=== PATIENT | female | born 1955 | race Caucasian/White ===

== ENCOUNTER → 2018-05-20 | Outpatient (CLI) | payer OTHER ==
--- NOTE | 2018-05-20 17:19 | MR ---
EXAMINATION TYPE: MR brain wo/w con DATE OF EXAM: 05/20/2018 COMPARISON: CT brain 09/01/2016 HISTORY: Numbness TECHNIQUE: Multiplanar, multisequence images of the brain and brainstem is performed without and with IV contras t, utilizing 7.5 mL intravenous Gadavist . FINDINGS: Diffusion weighted images demonstrate no evidence of a recent infarct or other diffusion ab normality. There is no extra-axial fluid collection. Periventricular white matter shows hyperintensi ties on inversion recovery and T2-weighted sequences, approximately 10 lesions are present. Largest i n the left frontal lobe measures approximately 11 mm and may be confluent smaller hyperintensities. T he ventricular system and cisternal spaces are normal in size and appearance. The brain volume is ag e appropriate. Midline structures demonstrate normal morphology. The craniocervical junction appears within normal limits. Post contrast images demonstrate in the left frontal lobe, question whether this may be fariha factual however, no additional abnormal enhancement. The dural venous sinuses appear patent. The visu alized sinuses are clear and the globes are intact. IMPRESSION: Nonspecific white matter demyelination. Additional findings above.
== END | disposition home or self-care (01) ==
LOC: RADMRIMAIN 06:18
PROVIDERS: ATTEND Nurse Practitioner Family
DX: G93.9 Disorder of brain, unspecified (principal); R20.2 Paresthesia of skin
CPT/HCPCS: 70553; A9581

== ENCOUNTER 2018-08-31 08:29 | Emergency (ER) | payer OTHER ==
[2018-08-31 08:36] VITALS: TEMP 98.2
[2018-08-31] MEDS ORDERED: SODIUM CHLORIDE 0.9% 1,000 ML IV STA ×2 (08:58)
[2018-08-31] MEDS ORDERED: ONDANSETRON 4 MG/2 ML VIAL IVP STA (08:58)
--- NOTE | 2018-08-31 09:00 | ED ---
Abdominal Pain HPI - General Chief Complaint: Abdominal Pain Stated Complaint: poss UTI/headache/vomiting Time Seen by Provider: 08/31/18 08:39 Source: patient, RN notes reviewed Mode of arrival: ambulatory Limitations: no limitations - History of Present Illness Initial Comments: This is a 62-year-old female who presents with complaints of dysuria she is also had nausea vomiting for the past 2 days along with a headache. Also decreased oral intake. She was recently seen in her doctor's office and she suspected she had a UTI that the tests apparently were negative. She still having symptoms however no chest pain cough phlegm production. No lower overt fevers chills or sweats. She does have some nonspecific abdominal pain. MD Complaint: abdominal pain, other - Related Data Home Medications Medication Instructions Recorded Confirmed ALPRAZolam [Xanax] 0.25 mg PO HS 09/01/16 09/01/16 Amitriptyline HCl 20 mg PO HS 09/01/16 09/01/16 Aspirin [Adult Low Dose Aspirin EC] 324 mg PO DAILY 09/01/16 09/02/16 Baclofen [Lioresal] 10 mg PO BID 09/01/16 09/01/16 DULoxetine HCL [Cymbalta] 60 mg PO DAILY 09/01/16 09/01/16 Ergocalciferol [Vitamin D2 50,000 unit PO NIX 09/01/16 09/01/16 (DRISDOL)] Hydrocortisone/Pramoxine 1 applic TOPICAL QAM 09/01/16 09/01/16 [Pramosone 2.5% Cream] Levothyroxine Sodium [Synthroid] 75 mcg PO DAILY 09/01/16 09/01/16 Linaclotide [Linzess] 145 mcg PO DAILY 09/01/16 09/01/16 Meloxicam 15 mg PO HS 09/01/16 09/01/16 Triamterene-Hctz 37.5-25Mg 1 cap PO DAILY 09/01/16 09/01/16 [Dyazide 37.5-25 Capsule] amLODIPine [Norvasc] 5 mg PO DAILY 09/01/16 09/01/16 cycloSPORINE 0.05% OPHTH SOLN 1 applicator BOTH EYES Q12H 09/01/16 09/01/16 [Restasis] rOPINIRole HCL [Requip] 1 mg PO HS 09/01/16 09/01/16 Previous Rx's Medication Instructions Recorded HYDROcodone/APAP 5-325MG [Lyons 1 each PO Q4HR PRN #60 tab 09/03/16 5-325] Sulfamethox-Tmp 800-160Mg [Bactrim 1 each PO BID #14 tab 09/03/16 DS 800-160 mg] Cephalexin [Keflex] 500 mg PO Q6HR #40 cap 08/31/18 Phenazopyridine [Pyridium] 100 mg PO TID #15 tablet 08/31/18 Allergies Allergy/AdvReac Type Severity Reaction Status Date / Time morphine Allergy Anaphylaxis Verified 08/31/18 08:36 hydromorphone [From Dilaudid] AdvReac Nausea & Verified 08/31/18 08:36 Vomiting Review of Systems ROS Statement: Those systems with pertinent positive or pertinent negative responses have been documented in the HPI. ROS Other: All systems not noted in ROS Statement are negative. Past Medical History Past Medical History: Fibromyalgia, Hyperlipidemia, Osteoarthritis (OA), Thyroid Disorder Additional Past Medical History / Comment(s): nhan, History of Any Multi-Drug Resistant Organisms: None Reported Past Surgical History: Section, Hysterectomy, Joint Replacement, Orthopedic Surgery Additional Past Surgical History / Comment(s): toe surgery, Past Anesthesia/Blood Transfusion Reactions: Postoperative Nausea & Vomiting ( PONV) Past Psychological History: No Psychological Hx Reported Smoking Status: Never smoker Past Alcohol Use History: None Reported Past Drug Use History: None Reported - Past Family History Father Family Medical History: Congestive Heart Failure (CHF), Coronary Artery Disease (CAD), Myocardial Infarction ([place]) Additional Family Medical History / Comment(s): at age 58 from a heart attack Mother Family Medical History: Dementia Brother(s) Family Medical History: Coronary Artery Disease (CAD) Additional Family Medical History / Comment(s): down syndrome, parkinsons Sister(s) Family Medical History: No Reported History General Exam - General Exam Comments Initial Comments: This is a well-developed well-nourished awake alert oriented 3 female Limitations: no limitations General appearance: alert, in no apparent distress Head exam: Present: atraumatic, normocephalic, normal inspection Eye exam: Present: normal appearance, PERRL, EOMI. Absent: scleral icterus, conjunctival injection, periorbital swelling ENT exam: Present: mucous membranes dry Neck exam: Present: normal inspection. Absent: tenderness, meningismus, lymphadenopathy Respiratory exam: Present: normal lung sounds bilaterally. Absent: respiratory distress, wheezes, rales, rhonchi, stridor Cardiovascular Exam: Present: regular rate, normal rhythm, normal heart sounds. Absent: systolic murmur, diastolic murmur, rubs, gallop, clicks GI/Abdominal exam: Present: soft, tenderness (Mild tenderness palpation of the suprapubic region no guarding rebound masses or bruits), normal bowel sounds. Absent: distended, guarding, rebound, rigid Rectal exam: Present: deferred Extremities exam: Present: normal inspection, full ROM, normal capillary refill. Absent: tenderness, pedal edema, joint swelling, calf tenderness Back exam: Present: normal inspection Neurological exam: Present: alert, oriented X3, CN II-XII intact Psychiatric exam: Present: normal affect, normal mood Skin exam: Present: warm, dry, intact, normal color. Absent: rash Course Vital Signs 08/31/18 08:33 Temperature 98.2 F Pulse Rate 94 Respiratory 20 Rate Blood Pressure 144/83 O2 Sat by Pulse 99 Oximetry Medical Decision Making - Medical Decision Making Patient is feeling improved after the medication and IV fluid rendered. Patient does have evidence of UTI she'll be discharged on appropriate medication she is a follow-up with her doctor return when necessary - Lab Data Result diagrams: 08/31/18 09:13 08/31/18 09:13 Lab Results 08/31/18 08/31/18 08/31/18 Range/Units 08:45 09:13 09:13 WBC (3.8-10.6) k/uL RBC (3.80-5.40) m/uL Hgb (11.4-16.0) gm/dL Hct (34.0-46.0) % MCV (80.0-100.0) fL MCH (25.0-35.0) pg MCHC (31.0-37.0) g/dL RDW (11.5-15.5) % Plt Count (150-450) k/uL Neutrophils % % Lymphocytes % % Monocytes % % Eosinophils % % Basophils % % Neutrophils # (1.3-7.7) k/uL Lymphocytes # (1.0-4.8) k/uL Monocytes # (0-1.0) k/uL Eosinophils # (0-0.7) k/uL Basophils # (0-0.2) k/uL Sodium 138 (137-145) mmol/L Potassium 4.5 (3.5-5.1) mmol/L Chloride 102 (98-107) mmol/L Carbon Dioxide 24 (22-30) mmol/L Anion Gap 12 mmol/L BUN 15 (7-17) mg/dL Creatinine 0.86 (0.52-1.04) mg/dL Est GFR (CKD-EPI)AfAm 84 (>60 ml/min/1.73 sqM) Est GFR (CKD-EPI)NonAf 73 (>60 ml/min/1.73 sqM) Glucose 127 H (74-99) mg/dL Plasma Lactic Acid Real (0.7-2.0) mmol/L Calcium 9.6 (8.4-10.2) mg/dL Total Bilirubin 0.9 (0.2-1.3) mg/dL AST 42 H (14-36) U/L ALT 41 (9-52) U/L Alkaline Phosphatase 84 (38-126) U/L Total Creatine Kinase 201 H (30-135) U/L CK-MB (CK-2) 0.8 (0.0-2.4) ng/mL CK-MB (CK-2) Rel Index 0.4 Troponin I <0.012 (0.000-0.034) ng/mL Total Protein 7.9 (6.3-8.2) g/dL Albumin 4.4 (3.5-5.0) g/dL Amylase 57 (30-110) U/L Lipase 39 (23-300) U/L Urine Color Yellow Urine Appearance Cloudy H (Clear) Urine pH 6.5 (5.0-8.0) Ur Specific [place] 1.010 (1.001-1.035) Urine Protein Trace H (Negative) Urine Glucose (UA) Negative (Negative) Urine Ketones Negative (Negative) Urine Blood Small H (Negative) Urine Nitrite Positive H (Negative) Urine Bilirubin Negative (Negative) Urine Urobilinogen <2.0 (<2.0) mg/dL Ur Leukocyte Esterase Large H (Negative) Urine RBC 4 (0-5) /hpf Urine WBC 131 H (0-5) /hpf Urine WBC Clumps Occasional H (None) /hpf Ur Squamous Epith Cells 2 (0-4) /hpf Urine Bacteria Rare H (None) /hpf Urine Mucus Rare H (None) /hpf 08/31/18 08/31/18 Range/Units 09:13 09:13 WBC 12.9 H (3.8-10.6) k/uL RBC 5.12 (3.80-5.40) m/uL Hgb 15.5 (11.4-16.0) gm/dL Hct 47.7 H (34.0-46.0) % MCV 93.3 (80.0-100.0) fL MCH 30.3 (25.0-35.0) pg MCHC 32.5 (31.0-37.0) g/dL RDW 13.3 (11.5-15.5) % Plt Count 272 (150-450) k/uL Neutrophils % 84 % Lymphocytes % 9 % Monocytes % 5 % Eosinophils % 1 % Basophils % 1 % Neutrophils # 10.8 H (1.3-7.7) k/uL Lymphocytes # 1.1 (1.0-4.8) k/uL Monocytes # 0.7 (0-1.0) k/uL Eosinophils # 0.1 (0-0.7) k/uL Basophils # 0.1 (0-0.2) k/uL Sodium (137-145) mmol/L Potassium (3.5-5.1) mmol/L Chloride (98-107) mmol/L Carbon Dioxide (22-30) mmol/L Anion Gap mmol/L BUN (7-17) mg/dL Creatinine (0.52-1.04) mg/dL Est GFR (CKD-EPI)AfAm (>60 ml/min/1.73 sqM) Est GFR (CKD-EPI)NonAf (>60 ml/min/1.73 sqM) Glucose (74-99) mg/dL Plasma Lactic Acid Real 1.3 (0.7-2.0) mmol/L Calcium (8.4-10.2) mg/dL Total Bilirubin (0.2-1.3) mg/dL AST (14-36) U/L ALT (9-52) U/L Alkaline Phosphatase (38-126) U/L Total Creatine Kinase (30-135) U/L CK-MB (CK-2) (0.0-2.4) ng/mL CK-MB (CK-2) Rel Index Troponin I (0.000-0.034) ng/mL Total Protein (6.3-8.2) g/dL Albumin (3.5-5.0) g/dL Amylase (30-110) U/L Lipase (23-300) U/L Urine Color Urine Appearance (Clear) Urine pH (5.0-8.0) Ur Specific [place] (1.001-1.035) Urine Protein (Negative) Urine Glucose (UA) (Negative) Urine Ketones (Negative) Urine Blood (Negative) Urine Nitrite (Negative) Urine Bilirubin (Negative) Urine Urobilinogen (<2.0) mg/dL Ur Leukocyte Esterase (Negative) Urine RBC (0-5) /hpf Urine WBC (0-5) /hpf Urine WBC Clumps (None) /hpf Ur Squamous Epith Cells (0-4) /hpf Urine Bacteria (None) /hpf Urine Mucus (None) /hpf - Radiology Data Radiology results: report reviewed (Imaging shows no definite acute findings.), image reviewed Disposition Clinical Impression: Urinary tract infection, Dehydration, Cephalgia Disposition: HOME SELF-CARE Condition: Good Instructions: Urinary Tract Infection in Women (ED), Dysuria (ED), Dehydration (ED) Prescriptions: Cephalexin [Keflex] 500 mg PO Q6HR #40 cap Phenazopyridine [Pyridium] 100 mg PO TID #15 tablet Is patient prescribed a controlled substance at d/c from ED?: No Referrals: Tenzin Peguero MD [Primary Care Provider] - 1-2 days
[2018-08-31 09:36] LABS: Appearance,Urine Cloudy (Clear); Bacteria,Urine Rare /hpf; Bilirubin,Urine Negative (Negative); Blood,Urine Small (Negative); Color,Urine Yellow; Glucose,Urine (UA) Negative (Negative); Ketones,Urine Negative (Negative); Leukocyte Esterase,Urine Large (Negative); Mucus,Urine Rare /hpf; Nitrite,Urine Positive (Negative); PH, Urine 6.5 (5.0-8.0); Protein,Urine Trace (Negative); RBC,Urine 4 /hpf (0-5); Squamous Epithelial Cell,Urine 2 /hpf (0-4); Urobilinogen,Urine <2.0 mg/dL (<2.0)
--- NOTE | 2018-08-31 09:47 | XR ---
EXAMINATION TYPE: XR abdomen 2V , 4 VIEWS DATE OF EXAM ORDERED: 08/31/2018 HISTORY: abdominal pain. COMPARISON: None. FINDINGS: There has been a previous fusion at L3, L4 and L5. The lung bases are clear. The abdominal gas pattern is within normal limits. There is no evidence of obstruction or free air. N o unusual calcifications are seen. IMPRESSION: NO ACUTE INTRA-ABDOMINAL ABNORMALITY.
--- NOTE | 2018-08-31 09:47 | XR ---
EXAMINATION TYPE: XR chest 2V DATE OF EXAM: 08/31/2018 HISTORY: abdominal pain. REFERENCE: Previous study dated 09/01/2016. FINDINGS: The lungs are clear. Pleural space are clear. Heart size is upper limits of normal. IMPRESSION: NO ACUTE INTRATHORACIC ABNORMALITY.
[2018-08-31 09:57] LABS: Basophils # (A) 0.1 k/uL (0-0.2); Basophils % (A) 1 %; Eosinophils # (A) 0.1 k/uL (0-0.7); Eosinophils % (A) 1 %; HCT 47.7 % (34.0-46.0); HGB 15.5 gm/dL (11.4-16.0); Lymphocytes # (A) 1.1 k/uL (1.0-4.8); Lymphocytes % (A) 9 %; MCH 30.3 pg (25.0-35.0); MCHC 32.5 g/dL (31.0-37.0); MCV 93.3 fL (80.0-100.0); Mean Platelet Volume 7.1; Monocytes # (A) 0.7 k/uL (0-1.0); Monocytes % (A) 5 %; Neutrophils # (A) 10.8 k/uL (1.3-7.7); Neutrophils % (A) 84 %; Platelet Count 272 k/uL (150-450); RBC 5.12 m/uL (3.80-5.40); RDW 13.3 % (11.5-15.5); WBC 12.9 k/uL (3.8-10.6)
[2018-08-31 09:59] LABS: Albumin 4.4 g/dL (3.5-5.0); Calcium 9.6 mg/dL (8.4-10.2); Potassium 4.5 mmol/L (3.5-5.1); Total Bilirubin 0.9 mg/dL (0.2-1.3); Total Protein 7.9 g/dL (6.3-8.2)
[2018-08-31 10:05] LABS: Creatine Kinase 201 U/L (30-135)
[2018-08-31 10:19] LABS: Creatine Kinase MB 0.8 ng/mL (0.0-2.4); Troponin I <0.012 ng/mL (0.000-0.034)
[2018-08-31] MEDS ORDERED: KETOROLAC 30 MG/ML 1 ML VIAL IVP STA (10:38)
[2018-08-31 11:56] VITALS: BP 117/68; PULSE 86; RESP 18
== END 2018-08-31 11:54 | disposition home or self-care (01) ==
LOC: EC 08:29
DX: N39.0 Urinary tract infection, site not specified (principal); E86.0 Dehydration; R51 Headache; R11.2 Nausea with vomiting, unspecified; R10.9 Unspecified abdominal pain; M79.7 Fibromyalgia; E78.5 Hyperlipidemia, unspecified; M19.90 Unspecified osteoarthritis, unspecified site; E06.3 Autoimmune thyroiditis; Z79.1 Long term (current) use of non-steroidal anti-inflammatories (NSAID); Z79.899 Other long term (current) drug therapy; Z79.82 Long term (current) use of aspirin; Z88.5 Allergy status to narcotic agent
CPT/HCPCS: 36415; 80053; 82150; 82550; 82553; 83605; 83690; 84484; 85025; 81001; 87086; 71046; 74019; 99284; 96365; 96375 ×2; 96361 ×2; J2405; J0696; J1885; 87077; 87186

== ENCOUNTER → 2018-11-07 | Outpatient (CLI) | payer OTHER ==
[2018-11-07 09:49] LABS: Basophils # (A) 0.1 k/uL (0-0.2); Basophils % (A) 1 %; Eosinophils # (A) 0.2 k/uL (0-0.7); Eosinophils % (A) 3 %; HCT 42.1 % (34.0-46.0); HGB 14.7 gm/dL (11.4-16.0); Lymphocytes # (A) 2.1 k/uL (1.0-4.8); Lymphocytes % (A) 27 %; MCHC 34.8 g/dL (31.0-37.0); MCV 91.9 fL (80.0-100.0); Mean Platelet Volume 6.9; Monocytes # (A) 0.5 k/uL (0-1.0); Monocytes % (A) 7 %; Neutrophils # (A) 4.6 k/uL (1.3-7.7); Neutrophils % (A) 60 %; Platelet Count 263 k/uL (150-450); RBC 4.58 m/uL (3.80-5.40); RDW 12.6 % (11.5-15.5); WBC 7.7 k/uL (3.8-10.6)
[2018-11-07 19:28] LABS: Albumin 4.5 g/dL (3.80-4.90); Albumin/Globulin Ratio 1.96 (1.60-3.17); Anion Gap 8.1 mmol/L (4.00-12.00); Calcium 9.6 mg/dL (8.7-10.3); Carbon Dioxide 29.9 mmol/L (21.6-31.8); Globulin 2.3 g/dL (1.6-3.3); LDL Cholesterol,Calculated 71.4 mg/dL (0.0-131.0); Potassium 3.7 mmol/L (3.5-5.5); Total Bilirubin 0.4 mg/dL (0.3-1.2); Total Protein 6.8 g/dL (6.2-8.2); VLDL Calculation 34.6 mg/dL (5.00-40.00)
[2018-11-07 19:36] LABS: T4, Free (Free Thyroxine) 1.2 ng/dL (0.80-1.80)
[2018-11-07 22:55] LABS: Hemoglobin A1C 5.9 % (4.0-6.0)
== END | disposition home or self-care (01) ==
LOC: LABWHC1 08:52
PROVIDERS: ATTEND Internal Medicine Geriatric Medicine
DX: E78.5 Hyperlipidemia, unspecified (principal); E03.9 Hypothyroidism, unspecified; D64.9 Anemia, unspecified; E73.9 Lactose intolerance, unspecified
CPT/HCPCS: 36415; 80053; 80061; 83036; 84439; 84443; 85025

== ENCOUNTER → 2019-03-30 | Outpatient (CLI) | payer OTHER ==
--- NOTE | 2019-03-30 11:41 | CT ---
EXAMINATION TYPE: CT brain wo con DATE OF EXAM: 03/30/2019 COMPARISON: 09/01/2016 INDICATION: syncopeal episodes DLP: 843 mGycm, Automated exposure control for dose reduction was used. CONTRAST: None CT of the brain is performed utilizing 3 mm thick sections through the posterior fossa and 3 mm thick sections through the remaining calvarium. Study is performed within 24 hours of arrival to the hosp ital. No abnormal hyperdensity is present to suggest an acute intracranial hemorrhage. No mass lesion is evident. No acute infarcts are evident. Mild periventricular white matter hypodensity is present, likely on th e basis of chronic white matter ischemic changes Ventricles and sulci are mildly prominent for the patient age. Paranasal sinuses and mastoid air cells within the [id number] are clear. There is been some progression of the atrophy from 2016. IMPRESSIONS: 1. Mild atrophy with mild periventricular white matter ischemic type changes.
== END | disposition home or self-care (01) ==
LOC: RADCTMAIN 11:10
PROVIDERS: ATTEND Internal Medicine Geriatric Medicine
DX: I67.82 Cerebral ischemia (principal); G31.9 Degenerative disease of nervous system, unspecified
CPT/HCPCS: 70450

== ENCOUNTER → 2019-04-03 | Outpatient (CLI) | payer OTHER ==
--- NOTE | 2019-04-03 10:18 | P.STRESS ---
- Stress Test Note Stress Test Results/Findings: Exam Performed: stress echo exercise Exam Date: 04/03/19 Reason for Exam: SYNCOPE / CHEST PAIN Height: 5 ft 4 in Weight: 79.379 kg Protocol: CARLO Stage: 3 Duration of Exercise: 8:00 Resting Heart Rate: 92 Resting Blood Pressure: 107/74 Maximum Achieved Heart Rate: 136 Maximum Achieved Blood Pressure: 140/36 85% PMHR: 133 100% PMHR: 157 METS: 9.5 Technologist Comment: Stress Test Results/Findings: This is a 63-year-old female with history of hypertension, hypercholesterolemia and family history of ischemic heart disease being evaluated for symptoms of chest pain and shortness of breath. Stress data: Baseline EKG showed sinus rhythm with poor. CT interval and QRS duration. Blood pressure at rest his hand several 74 with pulse rate of 92. Patient walked on the Carlo protocol for about 8 minutes achieving a maximum rate of 136 with blood pressure 136/84. EKGs taken during and after the exercise did not reveal any significant changes from the baseline. Echo data: Baseline echo images showed normal wall motion and thickening. Exercise echo images showed augmentation of wall motion and thickening in all segments. There was a transient drop in blood pressure in the post exercise period, which improved within a minute or so to normal range. The importance of this is not clear and probably not critically important. Final impression: #1. Negative stress test #2. Negative stress echo.
--- NOTE | 2019-04-06 13:45 | ECHOS ---
Stress Test Results/Findings: Exam Performed: stress echo exercise Exam Date: 04/03/19 Reason for Exam: SYNCOPE / CHEST PAIN Height: 5 ft 4 in Weight: 79.379 kg Protocol: CARLO Stage: 3 Duration of Exercise: 8:00 Resting Heart Rate: 92 Resting Blood Pressure: 107/74 Maximum Achieved Heart Rate: 136 Maximum Achieved Blood Pressure: 140/36 85% PMHR: 133 100% PMHR: 157 METS: 9.5 Technologist Comment: Stress Test Results/Findings: This is a 63-year-old female with history of hypertension, hypercholesterolemia and family history of ischemic heart disease being evaluated for symptoms of chest pain and shortness of breath. Stress data: Baseline EKG showed sinus rhythm with poor. [place] interval and QRS duration. Blood pressure at rest his hand several 74 with pulse rate of 92. Patient walked on the Carlo protocol for about 8 minutes achieving a maximum rate of 136 with blood pressure 136/84. EKGs taken during and after the exercise did not reveal any significant changes from the baseline. Echo data: Baseline echo images showed normal wall motion and thickening. Exercise echo images showed augmentation of wall motion and thickening in all segments. There was a transient drop in blood pressure in the post exercise period, which improved within a minute or so to normal range. The importance of this is not clear and probably not critically important. Final impression: #1. Negative stress test #2. Negative stress echo. CHARMAINE
== END | disposition home or self-care (01) ==
LOC: RADNMMAIN 09:09
PROVIDERS: ATTEND Internal Medicine Geriatric Medicine
DX: R55 Syncope and collapse (principal)
CPT/HCPCS: 93351

== ENCOUNTER → 2019-05-15 | Outpatient (CLI) | payer OTHER | END | disposition home or self-care (01) | LOC: LABPAT 10:00 | PROVIDERS: ATTEND Internal Medicine Clinical Cardiac Electrophysiology | DX: Z01.812 Encounter for preprocedural laboratory examination (principal); R55 Syncope and collapse; E78.5 Hyperlipidemia, unspecified | CPT/HCPCS: 36415; 82533 ==

== ENCOUNTER → 2019-05-19 | Day surgery (SDC) | payer OTHER ==
[~2019-05-19] MED LIST: SODIUM CHLORIDE 0.9% 1,000 ML IV SCH
[2019-05-19 08:15] VITALS: BP 129/85; PULSE 80; RESP 18; TEMP 97.9
--- NOTE | 2019-05-19 15:59 | P.PCN ---
Preoperative Diagnosis: Procedure Tilt table test Twelve-lead ECG EKG and tilt table test data reviewed with Dr. Garcia Indication for the procedure: Syncope Twelve-lead ECG showed supraventricular rhythm with normal AL, narrow QRS, normal QT interval, normal ST segments, no delta or epsilon waves Baseline heart rate was 75 and blood pressure was 132/67 Patient was tilted upright at a 70 degree angle per protocol. Patient remained asymptomatic throughout procedure Heart rate and blood pressure remained stable, no significant changes At the end of the procedure the patient was laid supine Impression Normal heart rate and blood pressure response to upright tilting, no evidence for neurocardiogenic syncope Normal twelve-lead EKG, negative P waves in lead III
== END ==
LOC: CATHEP 07:47
PROVIDERS: ATTEND Internal Medicine Clinical Cardiac Electrophysiology
DX: R55 Syncope and collapse (principal); I10 Essential (primary) hypertension; E78.5 Hyperlipidemia, unspecified; G47.33 Obstructive sleep apnea (adult) (pediatric); Z99.89 Dependence on other enabling machines and devices; Z82.49 Family history of ischemic heart disease and other diseases of the circulatory system; Z88.5 Allergy status to narcotic agent; Z88.8 Allergy status to other drugs, medicaments and biological substances; Z79.1 Long term (current) use of non-steroidal anti-inflammatories (NSAID); Z79.82 Long term (current) use of aspirin; Z79.890 Hormone replacement therapy; Z79.899 Other long term (current) drug therapy
CPT/HCPCS: 93005; 93660

== ENCOUNTER → 2019-06-30 | Outpatient (CLI) | payer OTHER ==
--- NOTE | 2019-06-30 19:45 | CONS ---
CONSULTATION REASON FOR CONSULTATION: Sleep apnea. HISTORY OF PRESENT ILLNESS: This is a 63-year-old female patient, diagnosed having obstructive sleep apnea through [facility]. The patient has an older-generation ResMed CPAP unit which is an elite type 2 and this machine is set at a pressure of 9 cm of water. The treatment has been not as successful as it used to be in the past and the patient is coming in for further advice. She has multiple medical problems and comorbidities most significant of which is fibromyalgia. She goes to bed around 10 p.m., wakes up at 5:30 am in the morning. She snores. She quits breathing while off the treatment and she is reporting sleep fragmentation and excessive fatigue and tiredness and sleepiness during the day. Her current [place] score is 19. She also has restlessness in the lower extremities and she has leg cramping for which she is on a combination of Requip and Flexeril. No recent weight gain or weight loss. She has gained probably 5 pounds over the past 1 year. No history of substance abuse. No history of head trauma. It takes her sometimes more than 30 minutes to fall asleep yet for most of the time, she is able to initiate sleep without any major difficulties. She is requesting a re-evaluation regarding HOMERO treatment. PAST MEDICAL HISTORY: 1. HOMERO. 2. Hypothyroidism. 3. Vitamin D deficiency. 4. Osteoarthritis. 5. Anxiety. 6. Fibromyalgia. 7. Acid reflux. 8. Hypertension. 9. Environmental allergies. 10.IBS. PAST SURGICAL HISTORY: Includes right total knee replacement. Hysterectomy and right shoulder rotator cuff repair. ALLERGIES: DILAUDID. MEDICATION LIST: Includes levothyroxine 75 mcg p.o. daily, meloxicam 50 mg p.o. daily, vitamin D 500,000 biweekly, Xanax 0.25 mg p.r.n., Requip 0.5 mg twice a day, Flexeril 10 mg at bedtime, Cymbalta 60 mg p.o. daily, aspirin 81 mg p.o. daily, Protonix 40 mg p.o. daily, Linzess 145 mg p.o. daily, amlodipine 5 mg p.o. daily, Zyrtec 10 mg as needed, Abilify 10 mg p.o. daily, multivitamin 1 tablet a day. FAMILY HISTORY: Positive for obstructive sleep apnea in several family members including the brothers. REVIEW OF SYSTEMS: Fourteen-point review of systems was done. Positive findings are mentioned in history of present illness. The patient prefers to sleep on her back. She takes occasional naps during the day and these are short 20-30 minute naps. Her weight has been stable. Few pounds up since last year. She wakes up at least to 1-3 times in the middle of the night. Occasionally, she has to get out of the bed. No sleep paralysis. No hallucinations. No cataplexy. She has chronic fatigue, chronic body aches and sleep fragmentation. [place] Score is at 19. PHYSICAL EXAMINATION: BP is 143/79, pulse 94, respirations 16, temp 98.1. Saturation 96% on room air. Height is 5 feet 10 inches, weight is 185, BMI 32.7, [place] score is 19 and neck size 16-3/4 of an inch. Temperature 98.1. General appearance: Calm and comfortable. Head is atraumatic, normocephalic. NECK: Supple. Mallampati class IV. There is no goiter or neck masses. LUNGS: Clear to auscultation. HEART: Sounds are regular rate and rhythm. Normal S1, S2. No S3, S4. No murmurs. ABDOMEN: Soft, nontender. No organomegaly. EXTREMITIES: No edema. No cyanosis or clubbing. NEUROLOGIC: She is oriented x3. No focal neurological deficits. PSYCHIATRIC: Negative for anxiety for now. She has chronic anxiety in the past which is well treated. No active signs of depression. SKIN: Negative for any wounds or ulceration. IMPRESSION: 1. Obstructive sleep apnea. The patient is currently on a CPAP pressure of 9 cm of water. She is coming in for reevaluation stating that the treatment may by itself be suboptimal as the patient is experiencing increased fatigue and sleepiness. 2. Fibromyalgia. 3. Chronic restlessness in lower extremities and muscle spasms maintained on a combination of Requip and Flexeril. 4. Chronic anxiety. 5. History of osteoarthritis. 6. History of vitamin D deficiency. 7. Acid reflux. 8. Hypertension. 9. Environmental allergies. PLAN: The patient has excessive tiredness and sleepiness. [place] Score is at 19. Efficacy of the CPAP treatment is in question. We will reestablish a diagnosis by ordering a polysomnogram. I would like to see sleep architecture in view of her underlying fibromyalgia and I would like assess extent of sleep fragmentation and see to what extent sleep apnea has been a contributing factor. Would like to establish a new AHI. Accordingly, she may need a newer degeneration CPAP unit which may have some automatic features. She is already using a nose mask and this will be kept unchanged. Meanwhile, we will continue the Requip and Flexeril at bedtime. Encourage exercise. Encourage regulating sleep schedule and maintaining good sleep hygiene measures. I am going to continue to follow. MMODL / IJN: [id number] /
== END | disposition home or self-care (01) ==
LOC: SLEEP 15:05
PROVIDERS: ATTEND Internal Medicine Critical Care Medicine
DX: G47.33 Obstructive sleep apnea (adult) (pediatric) (principal); M79.7 Fibromyalgia; R53.83 Other fatigue; K21.9 Gastro-esophageal reflux disease without esophagitis; M62.838 Other muscle spasm; R45.1 Restlessness and agitation; F41.1 Generalized anxiety disorder; I10 Essential (primary) hypertension; Z87.39 Personal history of other diseases of the musculoskeletal system and connective tissue; Z86.39 Personal history of other endocrine, nutritional and metabolic disease; Z99.89 Dependence on other enabling machines and devices; Z88.5 Allergy status to narcotic agent; T78.40XA Allergy, unspecified, initial encounter; Z79.82 Long term (current) use of aspirin; Z79.899 Other long term (current) drug therapy
CPT/HCPCS: 99211

== ENCOUNTER → 2019-07-20 | Outpatient (CLI) | payer OTHER ==
[2019-07-20 08:51] LABS: Albumin 4.5 g/dL (3.5-5.0); Calcium 9.6 mg/dL (8.4-10.2); Potassium 4.3 mmol/L (3.5-5.1); Total Bilirubin 0.3 mg/dL (0.2-1.3); Total Protein 7.7 g/dL (6.3-8.2)
--- NOTE | 2019-07-20 09:34 | BD ---
EXAMINATION TYPE: Axial Bone Density DATE OF EXAM: 07/20/2019 COMPARISON: NONE CLINICAL HISTORY: Postmenopausal female Height: 5 FT 3 IN Weight: 181 FRAX RISK QUESTIONS: RISK FACTORS HISTORY OF: Surgery to Spine/Hip(right/left)/Wrist (right/left): SPINAL FUSION When: APPROX 2011 Postmenopausal woman: TOTAL HYST AGE 50 Take estrogen and/or progesterone medications: AFTER HYST ONE YEAR NO LONGER TAKES MEDICATIONS: Thyroid Medications: YES Which medication: SYNTHROID How Long: APPROX 2 YEARS Additional Medications: SYNTHROID, VIT D, MELOXICAM, PRAMOSONE, ROPINIROLE, FLEXERIL, XIIDRA, DULOXET INE, ASPIRIN, PANTROPRAZOLE, LINZESS, AMLODIPINE, ZYRTEC, ARIPIPRAZOLE Additional History: EXAM MEASUREMENTS: Bone mineral density about the R hip (g/cm2): 0.984 Bone mineral density about the L hip (g/cm2): 0.931 T Score values are as follows: -----R Neck: -0.4 -----L Neck: -0.8 -----R Total: -0.2 -----L Total: -0.1 BASELINE Bone mineral density about the L Wrist (g/cm2): 0.593 T Score values are as follows: -----Dist. R+U: -0.5 -----Prox. R+U: -1.4 -----Radius total: -1.4 BASELINE IMPRESSION: Osteopenia (T Score between -2.5 and -1). There is slightly increased risk of fracture and the patient may be considered for treatment. Re-Screen 2-5 years. NOTE: T-SCORE=SD OF THE YOUNG ADULT MEAN.
[2019-07-20 19:26] LABS: Hemoglobin A1C 5.7 % (4.0-6.0)
--- NOTE | 2019-07-21 10:55 | MM ---
Reason for exam: screening (asymptomatic). Last mammogram was performed 2 years and 5 months ago. History: Patient is postmenopausal. Benign excisional biopsy of the right breast, 1999. Physical Findings: A clinical breast exam by your physician is recommended on an annual basis and results should be correlated with mammographic findings. MG 3D Screening Mammo W/Cad Bilateral CC and MLO view(s) were taken. Prior study comparison: March 04, 2017, mammogram, performed at [facility]. September 07, 2016, mammogram, performed at [facility]. The breast tissue is heterogeneously dense. This may lower the sensitivity of mammography. Benign appearing bilateral calcifications. No suspicious abnormality. Right biopsy marker noted. No significant changes when compared with prior studies. ASSESSMENT: Benign, BI-RAD 2 RECOMMENDATION: Routine screening mammogram of both breasts in 1 year.
== END | disposition home or self-care (01) ==
LOC: RADMAMWWP 07:07
PROVIDERS: ATTEND Internal Medicine Geriatric Medicine
DX: Z12.31 Encounter for screening mammogram for malignant neoplasm of breast (principal); M85.80 Other specified disorders of bone density and structure, unspecified site; Z00.00 Encounter for general adult medical examination without abnormal findings; E78.5 Hyperlipidemia, unspecified; E03.9 Hypothyroidism, unspecified; R73.9 Hyperglycemia, unspecified
CPT/HCPCS: 36415; 77063; 77067; 77080; 80053; 80061; 83036; 84443

== ENCOUNTER → 2020-02-01 | Outpatient (CLI) | payer MEDICAID ==
--- NOTE | 2020-02-01 17:28 | CT ---
EXAMINATION TYPE: CT soft tissue neck w con DATE OF EXAM: 02/01/2020 HISTORY: Benign neoplasm of floor of mouth, diagnosed with oral cancer 6 weeks ago after pain and mike wth in mouth per patient. COMPARISON: NONE CT DLP: 511 mGycm. Automated Exposure Control for Dose Reduction was Utilized. TECHNIQUE: CT scan of the neck is performed with IV Contrast, patient injected with 100 ml mL of Iso silvia 300, axial images are obtained, coronal and sagittal reformatted images are reviewed. FINDINGS: Airway: Patent nasopharyngeal and oropharyngeal airway. Slightly suboptimal evaluation and oropharynx due to streak artifact from cavitary fillings and crowns. Region of epiglottis and vallecula preserv ed sagittal image 56 for reference. Some asymmetric fullness of the posterior right oral pharyngeal s oft tissue superior to this in the region of axial image 25 for reference.. Medial course to the righ t internal carotid artery noted just superior to this axial image 21. Mild apical scarring is thought present bilaterally. The piriform sinuses symmetric and thought within normal limits. Parotid/submandibular glands: No gross abnormality seen. Carotid/Vascular Structures: Incidental dominant left vertebral artery. Vertebral arteries are patent to basilar junction. Mild to moderate peripheral plaque right greater than left carotid bulbs withou t hemodynamically significant stenosis seen in either internal carotid artery. Incidental significant stenosis at origin of right external carotid artery is thought present. Osseous Structures: Straightening of cervical spine with moderate spurring and disc space narrowing C 5-C6 and C6-C7 levels, posterior spur disc complexes efface the anterior thecal sac at these levels g reatest left paracentral aspect on axial image 44 and 48 respectively. S-shaped scoliotic curvature o n coronal images. Other: Scattered prominent but family subcentimeter lymph nodes throughout the neck bilaterally. Sing le enlarged right sided lymph node at level of hyoid bone measuring 1.4 x 1.1 cm axial image 35. Visualized paranasal sinuses are clear. Nasal septum deviated to right of midline. IMPRESSION: Poor visualization of primary neoplasm believed at level of oropharynx eccentric to right of midline. Prominent but subcentimeter bilateral neck lymph nodes with single enlarged right-sided neck lymph node at level of hyoid bone noted. Correlate clinically and with PET/CT follow-up advised.
== END | disposition home or self-care (01) ==
LOC: RADCTMAIN 15:59
PROVIDERS: ATTEND Otolaryngology
DX: R22.1 Localized swelling, mass and lump, neck (principal)
CPT/HCPCS: 70491; Q9967

== ENCOUNTER → 2020-02-12 | Outpatient (CLI) | payer MEDICAID | END | disposition home or self-care (01) | LOC: LABWHC1 12:15 | PROVIDERS: ATTEND Surgery | DX: Z01.812 Encounter for preprocedural laboratory examination (principal) | CPT/HCPCS: 87635 ==

== ENCOUNTER → 2020-04-28 | Outpatient (CLI) | payer MEDICAID | END | disposition home or self-care (01) | LOC: LABPAT 08:03 | PROVIDERS: ATTEND Otolaryngology | DX: Z11.59 Encounter for screening for other viral diseases (principal) | CPT/HCPCS: U0003; C9803 ==

== ENCOUNTER → 2020-06-21 | Outpatient (CLI) | payer MEDICAID ==
--- NOTE | 2020-06-21 16:43 | CT ---
EXAMINATION TYPE: CT abdomen pelvis w con DATE OF EXAM: 06/21/2020 COMPARISON: 09/01/2016 HISTORY: LLQ pain, blood in stool CT DLP: 823.7 mGycm Automated exposure control for dose reduction was used. CONTRAST: Performed with IV Contrast, patient injected with 100 mL of Isovue 300. Images were obtained from the diaphragm to the floor the pelvis with oral and intravenous contrast. Lung bases are clear of consolidation. There is minimal subsegmental atelectasis. There is no pleural effusion. There is hiatal hernia. Heart size is normal. Liver and spleen appear intact. Bile ducts are not dilated. Stomach is intact. Gallbladder appears no rmal. There is no evidence of pancreatic mass. There is no adrenal mass. Kidneys show satisfactory contrast opacification. There is no hydronephrosi s. Ureters are not dilated. Delayed images show normal renal excretion. The bladder distends smoothly . There is no inguinal hernia. There is hysterectomy. There is small amount of free fluid in the pelvis. There is a long segment of wall thickening involvi ng the sigmoid colon. There are sigmoid diverticula. There is no evidence of an abscess. There is no evidence of thickened appendix. There is no sign of free air. There is no ascites. There is no eviden ce of bowel obstruction. There is posterior fusion surgery in the lumbar spine with rods and screws at L3 and L4 and L5. The b [place] pelvis is intact. There is compression fracture of T12 with 25% loss of height. IMPRESSION: Long segment of inflammatory changes of the sigmoid colon. This is more likely related to inflammator y bowel disease or nonspecific colitis because of the long segment of involvement. Diverticulitis not entirely excluded. This is a change compared to old exam. There is compression fracture of T12 which is a change compared to old exam. Age of this fracture is not clear.
== END | disposition home or self-care (01) ==
LOC: RADCTMAIN 14:37
PROVIDERS: ATTEND Nurse Practitioner Gerontology
DX: K57.92 Diverticulitis of intestine, part unspecified, without perforation or abscess without bleeding (principal)
CPT/HCPCS: 74177; Q9967

== ENCOUNTER 2020-08-05 11:54 | Day surgery (SDC) | payer MEDICAID ==
[~2020-08-05 11:54] MED LIST changes: +LACTATED RINGERS 1,000 ML IV SCH; +LIDOCAINE 1% (10MG/ML) FOR IV START INTRADERMA PRN; -SODIUM CHLORIDE 0.9% 1,000 ML IV SCH
[2020-08-05 12:14] VITALS: TEMP 97.8
[2020-08-05] MEDS ORDERED: LACTATED RINGERS 1,000 ML IV ONE (12:14)
[2020-08-05] MEDS ORDERED: LIDOCAINE 1% (10MG/ML) FOR IV START INTRADERMA ONE (12:18)
[2020-08-05] MEDS ORDERED: PROPOFOL 10 MG/ML 20 ML VIAL IV ONE (13:27)
--- NOTE | 2020-08-05 13:47 | P.PCN ---
Date of Procedure: 08/05/20 Procedure(s) Performed: BRIEF HISTORY: Patient is a 64-year-old pleasant female scheduled for an elective colonoscopy as a part of evaluation of change in bowel habits and rectal bleeding and recent episode of acute infectious colitis. PROCEDURE PERFORMED: Colonoscopy with snare polypectomy. PREOPERATIVE DIAGNOSIS: Change in bowel habits/rectal bleeding. IV sedation per Anesthesia. PROCEDURE: After informed consent was obtained, the patient, was brought into the endoscopy unit. IV sedation was administered by Anesthesia under continuous monitoring. Digital rectal examination was normal. Initially the Olympus CF-160 flexible video colonoscope was then inserted in the rectum, gradually advanced into the cecum without any difficulty. Careful examination was performed as the scope was gradually being withdrawn. Ileocecal valve and the appendiceal orifice were visualized and appeared normal. Prep was excellent. Mucosa of the cecum, ascending colon, appeared normal. The transverse colon there was a 5 mm sessile polyp removed by snare polypectomy. Rest of the transverse colon, descending colon, sigmoid colon, and rectum appeared normal. Scattered left-sided diverticulosis seen. Retroflexion was performed in the rectum and grade 2 internal hemorrhoids were seen. The patient tolerated the procedure well. Impression: No evidence of colitis 5 mm sessile transverse colon polyp status post polypectomy Scattered sigmoid diverticulosis Small internal hemorrhoids. RECOMMENDATIONS: Findings of this examination were discussed with the patient as well as her family. She was advised to follow with the biopsy results and if the biopsy shows an adenoma she can have a repeat colonoscopy in 5 years.
[2020-08-05 13:50] VITALS: RESP 16
[2020-08-05 14:27] VITALS: BP 112/72; PULSE 85
== END 2020-08-05 14:54 | disposition home or self-care (01) ==
LOC: ORWHC2ENDO 11:54
PROVIDERS: ATTEND Internal Medicine Gastroenterology
DX: K63.5 Polyp of colon (principal); K57.30 Diverticulosis of large intestine without perforation or abscess without bleeding; K64.1 Second degree hemorrhoids; K51.90 Ulcerative colitis, unspecified, without complications; E07.9 Disorder of thyroid, unspecified; F41.9 Anxiety disorder, unspecified; F32.9 Major depressive disorder, single episode, unspecified; K21.9 Gastro-esophageal reflux disease without esophagitis; Z86.19 Personal history of other infectious and parasitic diseases; Z79.899 Other long term (current) drug therapy; Z79.890 Hormone replacement therapy; Z79.1 Long term (current) use of non-steroidal anti-inflammatories (NSAID); Z96.651 Presence of right artificial knee joint; Z90.710 Acquired absence of both cervix and uterus; Z98.890 Other specified postprocedural states; Z88.5 Allergy status to narcotic agent
CPT/HCPCS: 45385; 88305; J2704

== ENCOUNTER → 2020-11-03 | Outpatient (CLI) | payer MEDICARE ==
--- NOTE | 2020-11-08 11:30 | MM ---
Reason for exam: screening (asymptomatic). Last mammogram was performed 1 year and 3 months ago. History: Patient is postmenopausal and history of other cancer. Benign excisional biopsy of the right breast, 1999. Physical Findings: A clinical breast exam by your physician is recommended on an annual basis and results should be correlated with mammographic findings. MG 3D Screening Mammo W/Cad Bilateral CC and MLO view(s) were taken. XCCL view(s) were taken of the left breast. Prior study comparison: July 20, 2019, bilateral MG 3d screening mammo w/cad. March 04, 2017, mammogram, performed at [facility]. The breast tissue is heterogeneously dense. This may lower the sensitivity of mammography. Previous mammotome biopsy in the right breast. No significant changes when compared with prior studies. ASSESSMENT: Benign, BI-RAD 2 RECOMMENDATION: Routine screening mammogram of both breasts in 1 year.
== END | disposition home or self-care (01) ==
LOC: RADMAMWWP 11:33
PROVIDERS: ATTEND Internal Medicine Geriatric Medicine
DX: Z12.31 Encounter for screening mammogram for malignant neoplasm of breast (principal)
CPT/HCPCS: 77063; 77067

== ENCOUNTER → 2022-03-02 | Outpatient (CLI) | payer MEDICARE | END | disposition home or self-care (01) | LOC: LABWHC1 08:57 | PROVIDERS: ATTEND Physician Assistant Medical | DX: Z96.649 Presence of unspecified artificial hip joint (principal) | CPT/HCPCS: 36415; 85652; 86140 ==

== ENCOUNTER → 2022-05-24 | Outpatient (CLI) | payer MEDICARE ==
--- NOTE | 2022-05-24 10:10 | US ---
EXAMINATION TYPE: US abdomen complete DATE OF EXAM: 05/24/2022 COMPARISON: CT abdomen and pelvis June 21, 2020 CLINICAL HISTORY: R10.13 EPIGASTRIC PAIN.pain TECHNIQUE: Multiple sonographic images of the abdomen are obtained.Limited due to body habitus. FINDINGS: EXAM MEASUREMENTS: Liver Length: 15.1 cm Gallbladder Wall: .1 cm CBD: .3 cm Spleen: 8.3 cm Right Kidney: 9 x 4.7 x 3.3 cm Left Kidney: 10.4 x 4.8 x 4.0 cm [employer] TECHNICIAN NOTES: Pancreas: Tail obscured by overlying bowel gas Liver: Increased attenuation focal sparring near gallbladder 1.7 x 1.5 x 1.7 cm. Gallbladder: No stones seen Evidence for sonographic Mayer's sign: No CBD: wnl Spleen: Limited Right Kidney: No hydronephrosis or masses seen Left Kidney: No hydronephrosis or masses seen Upper IVC: wnl Abd Aorta: wnl The visualized liver is heterogeneously hyperechoic consistent with known diffuse fatty infiltration. No surrounding ascites. The intrahepatic portion of the IVC and visualized abdominal aorta are withi n normal limits. There is no evidence of cholelithiasis. Common bile duct is unremarkable. The vis ualized portions of the pancreas are homogenous. The spleen is unremarkable. Kidneys are symmetric and free of hydronephrosis. No renal lesions are seen. IMPRESSION: Slightly suboptimal study. No new or acute findings are evident.
== END | disposition home or self-care (01) ==
LOC: RADUSWWP 09:14
PROVIDERS: ATTEND Internal Medicine Gastroenterology
DX: R10.13 Epigastric pain (principal)
CPT/HCPCS: 76700

== ENCOUNTER 2023-02-01 15:41 | Inpatient (IN) | payer MEDICARE ==
[2023-02-01 16:49] LABS: Basophils # (A) 0.1 k/uL (0-0.2); Basophils % (A) 1 %; Eosinophils # (A) 0.1 k/uL (0-0.7); Eosinophils % (A) 1 %; HCT 42.1 % (34.0-46.0); HGB 13.9 gm/dL (11.4-16.0); Lymphocytes # (A) 1.7 k/uL (1.0-4.8); Lymphocytes % (A) 18 %; MCH 29.9 pg (25.0-35.0); MCHC 32.9 g/dL (31.0-37.0); MCV 90.9 fL (80.0-100.0); Mean Platelet Volume 7.4; Monocytes # (A) 0.5 k/uL (0-1.0); Monocytes % (A) 5 %; Neutrophils # (A) 6.8 k/uL (1.3-7.7); Neutrophils % (A) 72 %; Platelet Count 368 k/uL (150-450); RBC 4.63 m/uL (3.80-5.40); RDW 14.2 % (11.5-15.5); WBC 9.4 k/uL (3.8-10.6)
[2023-02-01 17:00] LABS: ALT 36 U/L (4-34); African American GFR (CKD) >90 (>60 ml/min/1.73 sqM); Albumin 4.3 g/dL (3.5-5.0); Anion Gap 12 mmol/L; Blood Urea Nitrogen 18 mg/dL (7-17); Calcium 9.1 mg/dL (8.4-10.2); Carbon Dioxide 24 mmol/L (22-30); Chloride 102 mmol/L (98-107); Creatine Kinase 327 U/L (30-135); Glucose 94 mg/dL (74-99); Non-African American GFR(CKD) >90 (>60 ml/min/1.73 sqM); Sodium 138 mmol/L (137-145); Total Bilirubin 0.6 mg/dL (0.2-1.3); Total Protein 7.4 g/dL (6.3-8.2)
[2023-02-01 17:02] LABS: AST 44 U/L (14-36); Alkaline Phosphatase 60 U/L (38-126); Potassium 4.5 mmol/L (3.5-5.1)
[2023-02-01 17:06] LABS: Prothrombin Time 10.2 sec (9.0-12.0)
[2023-02-01 17:11] LABS: Partial Thromboplastin Time 21.3 sec (22.0-30.0)
--- NOTE | 2023-02-01 17:13 | CT ---
EXAMINATION TYPE: CT brain wo con CT DLP: 1173.6 mGycm, Automated exposure control for dose reduction was used. DATE OF EXAM: 02/01/2023 5:00 PM COMPARISON: 03/30/2019.. CLINICAL INDICATION:Female, 67 years old with history of Neuro deficit, acute, stroke suspected, neur o deficit TECHNIQUE: Brain: Axial CT images of the brain were obtained with coronal and sagittal reformats created and rev iewed. Contrast used: None. Oral contrast used: None. FINDINGS: Brain: Extra-axial spaces: No abnormal extra-axial fluid collections. Ventricular system: Within normal limits Cerebral parenchyma: No acute intraparenchymal hemorrhage or mass effect. The flores-white junction is well differentiated. Cerebellum: Unremarkable. Mass effect: No evidence of midline shift. Intracranial vasculature: Atherosclerotic calcifications of the intracranial vessels. Soft tissues: Normal. Calvarium/osseous structures: No depressed skull fracture. 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 Paranasal sinuses and mastoid air cells: Mild scattered paranasal sinus disease. Visualized orbits: Bilateral aphakia IMPRESSION: No acute intracranial process.
--- NOTE | 2023-02-01 17:38 | XR ---
EXAMINATION TYPE: XR chest 2V DATE OF EXAM: 02/01/2023 5:31 PM COMPARISON: Chest radiographs from 08/31/2018 TECHNIQUE: XR chest 2V Frontal and lateral views of the chest. CLINICAL INDICATION:Female, 67 years old with history of altered mental status; FINDINGS: Lungs/Pleura: There is no evidence of pleural effusion, focal consolidation, or pneumothorax. Pulmonary vascularity: Unremarkable. Heart/mediastinum: Cardiomediastinal silhouette is unremarkable. Musculoskeletal: No acute osseous pathology. IMPRESSION: No acute cardiopulmonary disease/process.
--- NOTE | 2023-02-01 17:50 | CT ---
EXAMINATION TYPE: CT angio head neck CT DLP: 476 mGycm, Automated exposure control for dose reduction was used. DATE OF EXAM: 02/01/2023 5:38 PM COMPARISON: None. CLINICAL INDICATION:Female, 67 years old with history of Neuro deficit, acute, stroke suspected; PHH, neuro deficit TECHNIQUE: Axially acquired helical CT angiogram of the head and neck was obtained with contrast. Axi al images are supplemented with 3D reconstructions [facility] NASCET criteria used. Contrast used:65ml mL of Isovue 370 with IV Contrast, Oral contrast used: None. FINDINGS: CTA HEAD: No evidence of acute intracranial hemorrhage, mass effect, or midline shift. The ventricles, sulci, a nd cisterns are unremarkable. The visualized portions of the internal carotid arteries, middle cerebral arteries, anterior cerebral arteries, and posterior cerebral arteries are patent. Atherosclerosis of the intracranial vasculatur e. Mild fusiform dilation of the intracranial portion of the left vertebral artery up to 4 mm. The basilar and vertebral arteries are patent. CTA NECK: Right Carotid System: The common carotid artery and external carotid artery are patent. The carotid bifurcation demonstrate s no evidence of hemodynamically significant stenosis. The remaining portions of the internal carotid artery demonstrate normal size without significant narrowing. Left Carotid System: The common carotid artery and external carotid artery are patent. The carotid bifurcation demonstrate s no evidence of hemodynamically significant stenosis. The remaining portions of the internal carotid artery demonstrate normal size without significant narrowing. Vertebral arteries are patent without evidence hemodynamically significant stenosis. There is a three-vessel aortic arch. The origins of the great vessels are patent. No evidence of hemo dynamically significant stenosis. Upper thorax: IMPRESSION: 1. No evidence of dissection of the cervical internal carotid arteries or vertebral arteries or any e vidence of significant stenosis at the carotid bifurcations. 2. No evidence of intracranial high-grade stenosis. 3. Mild fusiform dilation of the intracranial portion of the left vertebral artery up to 4 mm.
--- NOTE | 2023-02-01 18:24 | ED ---
Neuro HPI - General Chief Complaint: Neuro Symptoms/Deficit Stated Complaint: Recheck Time Seen by Provider: 02/01/23 15:45 Source: patient, family Mode of arrival: ambulatory Limitations: no limitations - History of Present Illness Is the patient presenting with stroke symptoms?: Yes Initial Comments: 67-year-old female with past medical history of Nhan's thyroiditis, hyperlipidemia who presents to the emergency room with concern for stroke like symptoms. She states that she went to bed well at 11 PM last night. She awoke around 3 AM and could not ambulate due to ataxia. She attempted to go back to sleep however when she woke up at 6 AM she had some facial droop and was having difficulties with her words. She made an appointment with her primary care doctor. She was evaluated in their office and she was told that there was high concerned she had a stroke. They did give her 4 chewable aspirins and recommen ded that she proceed to the hospital for further evaluation. She denies history of stroke. She denies any weakness, numbness or tingling in her extremities. She does not take a blood thinner. She denies any head trauma. No chiropractic manipulations of the neck. She denies any fevers. No other alleviating, precipitating or modifying factors - Related Data Home Medications: Home Medications Medication Instructions Recorded Confirmed DULoxetine HCL [Cymbalta] 60 mg PO HS 09/01/16 02/01/23 Ergocalciferol [Vitamin D2 50,000 unit PO NIX 09/01/16 02/01/23 (DRISDOL)] Levothyroxine Sodium [Synthroid] 75 mcg PO DAILY 09/01/16 02/01/23 Meloxicam 15 mg PO HS 09/01/16 02/01/23 Pantoprazole [Protonix] 40 mg PO BID 08/31/18 02/01/23 amLODIPine [Norvasc] 5 mg PO DAILY 08/31/18 02/01/23 ALPRAZolam [Xanax] 0.5 mg PO BID@1200,1800 02/01/23 02/01/23 ALPRAZolam [Xanax] 0.5 mg PO DAILY PRN 02/01/23 02/01/23 Atomoxetine HCl [Strattera] 40 mg PO BID@1200,1800 02/01/23 02/01/23 Butalb/APAP/Caff 50-325-40Mg 1 tab PO Q6H PRN 02/01/23 02/01/23 [Fioricet 50-325-40] Pilocarpine [Salagen] 5 mg PO BID 02/01/23 02/01/23 rOPINIRole HCL [Requip] 1 mg PO BID 02/01/23 02/01/23 traZODone HCL 200 mg PO HS 02/01/23 02/01/23 Previous Rx's Medication Instructions Recorded Atorvastatin [Lipitor] 40 mg PO DAILY #30 tab 02/04/23 Allergies/Adverse Reactions: Allergies Allergy/AdvReac Type Severity Reaction Status Date / Time morphine Allergy Anaphylaxis Verified 02/01/23 18:11 hydromorphone [From Dilaudid] AdvReac Nausea & Verified 02/01/23 18:11 Vomiting Review of Systems ROS Statement: Those systems with pertinent positive or pertinent negative responses have been documented in the HPI. ROS Other: All systems not noted in ROS Statement are negative. General Exam Limitations: no limitations General appearance: alert, in no apparent distress, anxious Head exam: Present: atraumatic, normocephalic, normal inspection Eye exam: Present: normal appearance, PERRL, EOMI. Absent: scleral icterus, conjunctival injection, periorbital swelling ENT exam: Present: normal exam, mucous membranes moist Neck exam: Present: normal inspection. Absent: tenderness, meningismus, lymphadenopathy Respiratory exam: Present: normal lung sounds bilaterally. Absent: respiratory distress, wheezes, rales, rhonchi, stridor Cardiovascular Exam: Present: regular rate, normal rhythm, normal heart sounds. Absent: systolic murmur, diastolic murmur, rubs, gallop, clicks GI/Abdominal exam: Present: soft, normal bowel sounds. Absent: distended, tenderness, guarding, rebound, rigid Extremities exam: Present: normal inspection, full ROM, normal capillary refill. Absent: tenderness, pedal edema, joint swelling, calf tenderness Back exam: Present: normal inspection Neurological exam: Present: alert, oriented X3, other (mild left facial droop. some delayed speech) Psychiatric exam: Present: normal affect, normal mood Skin exam: Present: warm, dry, intact, normal color. Absent: rash Stroke MDM - Lab Data Result diagrams: 02/01/23 16:42 02/04/23 06:16 Lab Results 02/01/23 02/01/23 02/01/23 Range/Units 16:42 16:42 16:42 WBC 9.4 (3.8-10.6) k/uL RBC 4.63 (3.80-5.40) m/uL Hgb 13.9 (11.4-16.0) gm/dL Hct 42.1 (34.0-46.0) % MCV 90.9 (80.0-100.0) fL MCH 29.9 (25.0-35.0) pg MCHC 32.9 (31.0-37.0) g/dL RDW 14.2 (11.5-15.5) % Plt Count 368 (150-450) k/uL MPV 7.4 Neutrophils % 72 % Lymphocytes % 18 % Monocytes % 5 % Eosinophils % 1 % Basophils % 1 % Neutrophils # 6.8 (1.3-7.7) k/uL Lymphocytes # 1.7 (1.0-4.8) k/uL Monocytes # 0.5 (0-1.0) k/uL Eosinophils # 0.1 (0-0.7) k/uL Basophils # 0.1 (0-0.2) k/uL PT 10.2 (9.0-12.0) sec INR 1.0 (<1.2) APTT 21.3 L (22.0-30.0) sec Sodium 138 (137-145) mmol/L Potassium 4.5 (3.5-5.1) mmol/L Chloride 102 (98-107) mmol/L Carbon Dioxide 24 (22-30) mmol/L Anion Gap 12 mmol/L BUN 18 H (7-17) mg/dL Creatinine 0.63 (0.52-1.04) mg/dL Est GFR (CKD-EPI)AfAm >90 (>60 ml/min/1.73 sqM) Est GFR (CKD-EPI)NonAf >90 (>60 ml/min/1.73 sqM) Glucose 94 (74-99) mg/dL Estimated Ave Glu mg/dL Hemoglobin A1c (0.0-6.0) % Calcium 9.1 (8.4-10.2) mg/dL Total Bilirubin 0.6 (0.2-1.3) mg/dL AST 44 H (14-36) U/L ALT 36 H (4-34) U/L Alkaline Phosphatase 60 (38-126) U/L Creatine Kinase 327 H (30-135) U/L Troponin I (0.000-0.034) ng/mL Total Protein 7.4 (6.3-8.2) g/dL Albumin 4.3 (3.5-5.0) g/dL Triglycerides (0.00-149.00) mg/dL Cholesterol (0.00-200.00) mg/dL LDL Cholesterol, Calc (0.0-131.0) mg/dL VLDL Cholesterol, Calc (5.00-40.00) mg/dL HDL Cholesterol (40.00-60.00) mg/dL Cholesterol/HDL Ratio Ratio TSH (0.465-4.680) mIU/L Free T4 (0.78-2.19) ng/dL 02/01/23 02/01/23 02/02/23 Range/Units 16:42 16:42 12:53 WBC (3.8-10.6) k/uL RBC (3.80-5.40) m/uL Hgb (11.4-16.0) gm/dL Hct (34.0-46.0) % MCV (80.0-100.0) fL MCH (25.0-35.0) pg MCHC (31.0-37.0) g/dL RDW (11.5-15.5) % Plt Count (150-450) k/uL MPV Neutrophils % % Lymphocytes % % Monocytes % % Eosinophils % % Basophils % % Neutrophils # (1.3-7.7) k/uL Lymphocytes # (1.0-4.8) k/uL Monocytes # (0-1.0) k/uL Eosinophils # (0-0.7) k/uL Basophils # (0-0.2) k/uL PT (9.0-12.0) sec INR (<1.2) APTT (22.0-30.0) sec Sodium (137-145) mmol/L Potassium (3.5-5.1) mmol/L Chloride (98-107) mmol/L Carbon Dioxide (22-30) mmol/L Anion Gap mmol/L BUN (7-17) mg/dL Creatinine (0.52-1.04) mg/dL Est GFR (CKD-EPI)AfAm (>60 ml/min/1.73 sqM) Est GFR (CKD-EPI)NonAf (>60 ml/min/1.73 sqM) Glucose (74-99) mg/dL Estimated Ave Glu mg/dL Hemoglobin A1c (0.0-6.0) % Calcium (8.4-10.2) mg/dL Total Bilirubin (0.2-1.3) mg/dL AST (14-36) U/L ALT (4-34) U/L Alkaline Phosphatase (38-126) U/L Creatine Kinase (30-135) U/L Troponin I <0.012 (0.000-0.034) ng/mL Total Protein (6.3-8.2) g/dL Albumin (3.5-5.0) g/dL Triglycerides 66.80 (0.00-149.00) mg/dL Cholesterol 169.00 (0.00-200.00) mg/dL LDL Cholesterol, Calc 65.0 (0.0-131.0) mg/dL VLDL Cholesterol, Calc 13.36 (5.00-40.00) mg/dL HDL Cholesterol 90.60 H (40.00-60.00) mg/dL Cholesterol/HDL Ratio 1.87 Ratio TSH 0.397 L (0.465-4.680) mIU/L Free T4 1.52 (0.78-2.19) ng/dL 02/02/23 Range/Units 12:53 WBC (3.8-10.6) k/uL RBC (3.80-5.40) m/uL Hgb (11.4-16.0) gm/dL Hct (34.0-46.0) % MCV (80.0-100.0) fL MCH (25.0-35.0) pg MCHC (31.0-37.0) g/dL RDW (11.5-15.5) % Plt Count (150-450) k/uL MPV Neutrophils % % Lymphocytes % % Monocytes % % Eosinophils % % Basophils % % Neutrophils # (1.3-7.7) k/uL Lymphocytes # (1.0-4.8) k/uL Monocytes # (0-1.0) k/uL Eosinophils # (0-0.7) k/uL Basophils # (0-0.2) k/uL PT (9.0-12.0) sec INR (<1.2) APTT (22.0-30.0) sec Sodium (137-145) mmol/L Potassium (3.5-5.1) mmol/L Chloride (98-107) mmol/L Carbon Dioxide (22-30) mmol/L Anion Gap mmol/L BUN (7-17) mg/dL Creatinine (0.52-1.04) mg/dL Est GFR (CKD-EPI)AfAm (>60 ml/min/1.73 sqM) Est GFR (CKD-EPI)NonAf (>60 ml/min/1.73 sqM) Glucose (74-99) mg/dL Estimated Ave Glu mg/dL 121 Hemoglobin A1c 5.9 (0.0-6.0) % Calcium (8.4-10.2) mg/dL Total Bilirubin (0.2-1.3) mg/dL AST (14-36) U/L ALT (4-34) U/L Alkaline Phosphatase (38-126) U/L Creatine Kinase (30-135) U/L Troponin I (0.000-0.034) ng/mL Total Protein (6.3-8.2) g/dL Albumin (3.5-5.0) g/dL Triglycerides (0.00-149.00) mg/dL Cholesterol (0.00-200.00) mg/dL LDL Cholesterol, Calc (0.0-131.0) mg/dL VLDL Cholesterol, Calc (5.00-40.00) mg/dL HDL Cholesterol (40.00-60.00) mg/dL Cholesterol/HDL Ratio Ratio TSH (0.465-4.680) mIU/L Free T4 (0.78-2.19) ng/dL - Medical Decision Making Was pt. sent in by a medical professional or institution (, PA, KNUCKLE [employer]ENDER, urgent c are, hospital, or custodial...) When possible be specific @ -Yes, sent in from PCP office Did you speak to anyone other than the patient for history (EMS, parent, family, police, friend...)? What history was obtained from this source @ -No Did you review nursing and triage notes (agree or disagree)? Why? @ -I reviewed and agree with nursing and triage notes Were old charts reviewed (outside hosp., previous admission, EMS record, old EKG, old radiological studies, urgent care reports/EKG's, custodial records)? Report findings @ -No Differential Diagnosis (chest pain, altered mental status, abdominal pain women, abdominal pain men, vaginal bleeding, weakness, fever, dyspnea, syncope, headache, dizziness, GI bleed, back pain, seizure, CVA, palpatations, mental health, musculoskeletal)? @ -CVA, TIA, SAH, SDH, brain mass EKG interpreted by me (3pts min.). @ -yes, interpreted by myself X-rays interpreted by me (1pt min.). @ -yes, interpreted by myself CT interpreted by me (1pt min.). @ -I interpreted the CTS myself U/S interpreted by me (1pt. min.). @ -None done What testing was considered but not performed or refused? (CT, X-rays, U/S, labs)? Why? @ -None What meds were considered but not given or refused? Why? @ -None Did you discuss the management of the patient with other professionals (professionals i.e. , PA, KNUCKLE BENDER, lab, RT, psych nurse, psychosocial rehabilitation counselor, transitions manager rn, teacher, deportation officer, residential case manager)? Give summary @ -Yes, discussed admission with lolis from [facility] Was smoking cessation discussed for >3mins.? @ -No Was critical care preformed (if so, how long)? @ -Yes, 40 minutes for activation of code stroke Were there social determinants of health that impacted care today? How? (Homelessness, low income, unemployed, alcoholism, drug addiction, transportation, low edu. Level, literacy, decrease access to med. care, assisted, rehab)? @ -No Was there de-escalation of care discussed even if they declined (Discuss DNR or withdrawal of care, Hospice)? DNR status @ -No What co-morbidities impacted this encounter? (DM, HTN, Smoking, COPD, CAD, Cancer, CVA, ARF, Chemo, Hep., AIDS, mental health diagnosis, sleep apnea, morbid obesity)? @ -None Was patient admitted / discharged? Hospital course, mention meds given and ro lei, prescriptions, significant lab abnormalities, going to OR and other pertinent info. @ -Upon arrival patient was placed into room 7. A thorough history and physical exam was performed. NIH is assessed and the patient does score a 1 for facial droop on the left side. Code stroke is activated. Last known well was 11 PM last night. Laboratory studies are conducted in the patient does go for a CT of her head. CT angiography does not demonstrate any acute process. Mild fusiform dilation of the intracranial portion of the left vertebral artery up to 4 mm. Results are discussed with the patient. Did recommend admission for neurology consultation. She has already received her aspirin from her primary care office. I did order a dose of statin. Patient was agreeable to admission. Spoke with Lolis from [facility] who agreed to admit the patient Undiagnosed new problem with uncertain prognosis? @ -yes Drug Therapy requiring intensive monitoring for toxicity (Heparin, Nitro, Insulin, Cardizem)? @ -No Were any procedures done? @ -No Diagnosis/symptom? @ -acute facial droop, accute dysarthria Acute, or Chronic, or Acute on Chronic? @ -acute Uncomplicated (without systemic symptoms) or Complicated (systemic symptoms)? @ -complicated Side effects of treatment? @ -allergic reaction Exacerbation, Progression, or Severe Exacerbation? @ -No Poses a threat to life or bodily function? How? (Chest pain, [place], [place], pneumonia, PE, COPD, DKA, ARF, appy, cholecystitis, CVA, Diverticulitis, Homicidal, Suicidal, threat to staff... and all critical care pts) @ -yes 02/01/23 20:49 EKG demonstrates sinus rhythm with a rate of 75. TX interval 140. QRS 98. QTC of 431. No acute ST elevations or depressions Past Medical History Past Medical History: Fibromyalgia, Hyperlipidemia, Osteoarthritis (OA), Thyroid Disorder Additional Past Medical History / Comment(s): nhan. History of Any Multi-Drug Resistant Organisms: None Reported Past Surgical History: Section, Hysterectomy, Joint Replacement, Orthopedic Surgery Additional Past Surgical History / Comment(s): RIGHT KNEE REPLACED. Past Anesthesia/Blood Transfusion Reactions: Postoperative Nausea & Vomiting (PONV) Past Psychological History: Anxiety, Depression Smoking Status: Never smoker Past Alcohol Use History: None Reported Past Drug Use History: None Reported - Past Family History Father Family Medical History: Congestive Heart Failure (CHF), Coronary Artery Disease (CAD), Myocardial Infarction ([place]) Additional Family Medical History / Comment(s): at age 58 from a heart attack Mother Family Medical History: Dementia Brother(s) Family Medical History: Coronary Artery Disease (CAD) Additional Family Medical History / Comment(s): down syndrome, parkinsons. 2nd brother from heart disease Sister(s) Family Medical History: No Reported History Course Vital Signs 02/01/23 02/01/23 02/01/23 15:45 16:14 16:20 Temperature 97.9 F Pulse Rate 71 Respiratory 16 Rate Blood Pressure 135/75 147/81 139/71 O2 Sat by Pulse 99 100 Oximetry 02/01/23 02/01/23 02/01/23 17:13 17:21 17:38 Temperature 98.2 F Pulse Rate 75 75 74 Respiratory 17 18 17 Rate Blood Pressure 134/85 139/78 152/80 O2 Sat by Pulse 99 98 99 Oximetry 02/01/23 02/01/23 02/01/23 18:02 18:19 18:57 Temperature 97.9 F Pulse Rate 75 76 74 Respiratory 18 17 18 Rate Blood Pressure 135/83 134/94 135/76 O2 Sat by Pulse 99 97 98 Oximetry 02/01/23 19:41 Temperature 98.2 F Pulse Rate 75 Respiratory 18 Rate Blood Pressure 128/84 O2 Sat by Pulse 99 Oximetry Critical Care Time Critical Care Time: Yes Critical Care Time: 40 minutes for activation of code stroke Disposition Clinical Impression: Cerebrovascular accident (CVA), Facial droop Disposition: ADMITTED IP TO THIS [facility] Condition: Stable Is patient prescribed a controlled substance at d/c from ED?: No Time of Disposition: 18:26 Decision to Admit Reason: Admit from EC Decision Date: 02/01/23 Decision Time: 18:26
[2023-02-01] MEDS ORDERED: ATORVASTATIN 80 MG TAB PO SCH (21:00)
[2023-02-01] MEDS ORDERED: NON FORMULARY DRUG (Rosuvastatin 10 MG Tablet) PO SCH (21:15)
[2023-02-01] MEDS: PANTOPRAZOLE 40 MG TABLET PO SCH (21:23)
[2023-02-01] MEDS: traZODone HCL 100 MG TAB PO SCH (21:23)
[2023-02-01] MEDS: DULoxetine HCL 60 MG CAPSULE.DR PO SCH (21:23)
[2023-02-01] MEDS: ALPRAZolam 0.5 MG TAB PO PRN (21:23)
[2023-02-01] MEDS: PILOCARPINE 5 MG TAB PO SCH (21:38)
[2023-02-02] MEDS: LEVOTHYROXINE 75 MCG TAB PO SCH (05:26)
[2023-02-02] MEDS: ATORVASTATIN 40 MG TAB PO SCH (08:15)
[2023-02-02] MEDS: ASPIRIN 325 MG TAB PO SCH (08:15)
[2023-02-02] MEDS: amLODIPine 5 MG TAB PO SCH (08:15)
[2023-02-02] MEDS: PANTOPRAZOLE 40 MG TABLET PO SCH ×2 (08:16→19:59)
[2023-02-02] MEDS: PILOCARPINE 5 MG TAB PO SCH ×2 (08:16→19:59)
[2023-02-02] MEDS: ALPRAZolam 0.5 MG TAB PO PRN (09:45)
[2023-02-02 09:54] LABS: Chol/HDL Ratio 1.87 Ratio; VLDL Calculation 13.36 mg/dL (5.00-40.00)
[2023-02-02] MEDS: NON FORMULARY DRUG (Atomoxetine Hcl [Strattera] 40 MG Capsule) PO SCH ×2 (12:19→17:55)
--- NOTE | 2023-02-02 12:46 | P.CNNES ---
History of Present Illness Consult date: 02/02/23 Requesting physician: Rani Santos Reason for Consult: cva History of Present Illness: This is a 77-year-old woman with history of hypertension who presented emergency department because of right facial weakness and unsteady gait. Patient is accompanied with her was at bedside. Patient stated that yesterday she woke up around 4a.m. and sets her walking is unsteady imbalances off then around 6H family member noticed that her right face was weak. She was drooling out of the right side as well. Last normal states was the on 01/31/2023 around 11 PM. Patient denies history of stroke or TIAs in the past. She is not on any antiplatelet. She denies history of A. fib or flutter. She is not on any anticoagulation. Denies tobacco use. Some of the workup during his hospital visit consisted of: CT of the head is reported as no acute the cranial process. I personally reviewed the CT and I agree with the report. CT angiography of the head and neck was reported as no evidence of dissection of the cervical internal carotid artery or vertebral artery or any evidence of significant stenosis at the carotid bifurcation. No evidence of intracranial high-grade stenosis. Mild fusiform dilation of intracranial portion of the left vertebral artery up to 4 mm. NIH stroke scale per the ED team is 1 for facial droop. Stroke code was activated. No IV TPA because of low NIH and the patient is outside the window. Risk of IV TPA outweigh the benefit. Lipid panel is [place] 60s, cholesterol 169, LDL of 65 and HDL is 90. Review of Systems Review of system: The 12 point system was reviewed and apparent positive and negative per HPI. Past Medical History Past Medical History: Fibromyalgia, Hyperlipidemia, Osteoarthritis (OA), Thyroid Disorder Additional Past Medical History / Comment(s): nhan. History of Any Multi-Drug Resistant Organisms: None Reported Past Surgical History: Section, Hysterectomy, Joint Replacement, Ort hopedic Surgery Additional Past Surgical History / Comment(s): RIGHT KNEE REPLACED. Past Anesthesia/Blood Transfusion Reactions: Postoperative Nausea & Vomiting (PONV) Past Psychological History: Anxiety, Depression Smoking Status: Never smoker Past Alcohol Use History: None Reported Past Drug Use History: None Reported - Past Family History Father Family Medical History: Congestive Heart Failure (CHF), Coronary Artery Disease (CAD), Myocardial Infarction ([place]) Additional Family Medical History / Comment(s): at age 58 from a heart attack Mother Family Medical History: Dementia Brother(s) Family Medical History: Coronary Artery Disease (CAD) Additional Family Medical History / Comment(s): down syndrome, parkinsons. 2nd brother from heart disease Sister(s) Family Medical History: No Reported History Medications and Allergies Home Medications Medication Instructions Recorded Confirmed Type DULoxetine HCL [Cymbalta] 60 mg PO HS 09/01/16 02/01/23 History Ergocalciferol [Vitamin D2 50,000 unit PO NIX 09/01/16 02/01/23 History (DRISDOL)] Levothyroxine Sodium [Synthroid] 75 mcg PO DAILY 09/01/16 02/01/23 History Meloxicam 15 mg PO HS 09/01/16 02/01/23 History Pantoprazole [Protonix] 40 mg PO BID 08/31/18 02/01/23 History amLODIPine [Norvasc] 5 mg PO DAILY 08/31/18 02/01/23 History ALPRAZolam [Xanax] 0.5 mg PO BID@1200,1800 02/01/23 02/01/23 History ALPRAZolam [Xanax] 0.5 mg PO DAILY PRN 02/01/23 02/01/23 History Atomoxetine HCl [Strattera] 40 mg PO BID@1200,1800 02/01/23 02/01/23 History Butalb/APAP/Caff 50-325-40Mg 1 tab PO Q6H PRN 02/01/23 02/01/23 History [Fioricet 50-325-40] Pilocarpine [Salagen] 5 mg PO BID 02/01/23 02/01/23 History Rosuvastatin [Crestor] 10 mg PO HS 02/01/23 02/01/23 History rOPINIRole HCL [Requip] 1 mg PO BID 02/01/23 02/01/23 History traZODone HCL 200 mg PO HS 02/01/23 02/01/23 History Allergies Allergy/AdvReac Type Severity Reaction Status Date / Time morphine Allergy Anaphylaxis Verified 02/01/23 18:11 hydromorphone [From Dilaudid] AdvReac Nausea & Verified 02/01/23 18:11 Vomiting Physical Examination - Vital Signs Vital Signs: Vital Signs Temp Pulse Pulse Resp BP BP Pulse Ox 02/02/23 08:00 97.9 F 71 18 128/81 98 02/02/23 04:00 73 18 112/58 93 L 02/02/23 00:00 98.2 F 87 18 111/65 95 02/01/23 20:59 98 F 74 18 136/76 96 02/01/23 19:41 98.2 F 75 18 128/84 99 02/01/23 18:57 97.9 F 74 18 135/76 98 02/01/23 18:19 76 17 134/94 97 02/01/23 18:02 75 18 135/83 99 02/01/23 17:38 74 17 152/80 99 02/01/23 17:21 75 18 139/78 98 02/01/23 17:13 98.2 F 75 17 134/85 99 02/01/23 16:20 139/71 100 02/01/23 16:14 147/81 02/01/23 15:45 97.9 F 71 16 135/75 99 Intake and Output 02/01/23 02/02/23 02/02/23 22:59 06:59 14:59 Other: Voiding Method Toilet Toilet # Voids 1 3 Weight 77.2 kg GENERAL: The patient is lying in bed and is not in acute distress. CHEST: The heart rate is regular rate rhythm. No murmurs to auscultation. LUNG: Clear to auscultation bilaterally no wheezing noted throughout. Not labored breathing. ABDOMEN/GI: Bowel sounds present in all 4 quadrants. No tenderness to palpation throughout. NEUROLOGICAL: Higher mental function: The patient is awake, alert, oriented to self, place and time. Patient is following commands. No aphasia and no neglect. Cranial nerves: The pupils are round, equal and reactive to light and accommodation. Visual hall are full to confrontation throughout. Extraocular movement is intact no nystagmus is noted. Facial sensation is normal to touch throughout. The facial strength is normal throughout. Hearing is normal bilaterally to hand rub. Tongue is midline and moved soig-by-mcte without any difficulty. No dysarthria is noted. Shoulder shrug is normal bilaterally. Motor: Gait: Is unsteady gait and dragging the right side. The strength is 4+, right hand front desk coordinator is 4+. Otherwise 5 over 5 throughout. Normal tone and bulk. Cerebellum: Normal finger to nose heel to chin bilaterally. Sensation: Sensation is normal to touch throughout. Reflexes (right/left): 2+ throughout. Plantars are mute bilaterally. Results - Laboratory Findings CBC and BMP: 02/01/23 16:42 02/01/23 16:42 Abnormal Lab Findings: Abnormal Labs 02/01/23 02/01/23 02/01/23 16:42 16:42 16:42 APTT 21.3 L BUN 18 H AST 44 H ALT 36 H Creatine Kinase 327 H HDL Cholesterol 90.60 H Assessment and Plan Assessment: This is a 67-year-old woman who presented because of right facial weakness and unsteady gait. Last normal state was 01/31/2023 close to midnight and woke-up next day with stroke-symptoms. Acute ischemic stroke. In ED had NIH 1 (right facial droop). On examination I feel the patient has predominantly right lower extremity weakness, right hand front desk coordinator weakness and the patient is having some drooling earlier on right. Underlying Hypertension--currently controlled Hyperlipidemia Hypothyroidism Plan: Patient was started on aspirin 325 mg daily in the ED I also started her on Plavix 75 mg daily (was not on antiplatelets prior). Is on Lipitor 40 mg daily for signature flexes I ordered MRI of the brain urgently, 2-D echo, hemoglobin A1c, TSH Continue her checks Placed on cardiac monitoring PT OT and EXCHANGE FLOOR MANAGER are consulted Consulted the inpatient rehab team We'll defer the rest of the medical management to the primary team For DVT prophylaxis the patient started on subcu heparin 5000 units every 12 yecenia rs Plan discussed with the patient and her was at bedside as well as primary team. Thank you for the consultation. Dr. Clinton will start neurology service tomorrow A.M. Time with Patient: Greater than 30
[2023-02-02] MEDS: CLOPIDOGREL 75 MG TAB PO SCH (12:57)
[2023-02-02 14:33] LABS: T4, Free (Free Thyroxine) 1.52 ng/dL (0.78-2.19)
--- NOTE | 2023-02-02 14:40 | P.HPIM ---
History of Present Illness H&P Date: 02/02/23 This is a 67 year old female with medical history of hypertension, fibromyalgia, hashimotos thyroiditis, anxiety/depression, never smoker. Patient presents to the hospital with concern of right facial droop and bilateral lower extremity weakness. Patient reports symptoms started when patient was out of state visiting family. Patient also reports unsteady gait and wobbly at that time. Has issues with vision but nothing acute per patient. Last night patient went to bed when she awake was unable to ambulate and also having facial droop and difficulty finding words. No prior history of stroke. Not on daily aspirin therapy. Denies chest pain, denies shortness of breath. Denies dizziness or lightheadedness. No speech or swallowing issues. Patient is admitted to the hospital rule out acute stroke and neurology has been consulted. Patient did not receive TPA due to the timing of coming to the ER for evaluation. Patient had negative brain CT and CT angiography of the brain showing no evidence of dissection of the cervical internal carotid arteries or vertebral arteries or any evidence of intracranial high grade stenosis. Mild fusiform dilation of the intracranial portion of the left vertebral artery up to 4mm. EKG showing sinus rhythm heart rate of [address] or T wave changes. AST and ALT slightly elevated. Troponin level negative. Lipid panel completed. TSH 0.397 and T4 is pending. Patient is maintained on synthroid 75 mcg daily. All other home medications resumed. Patient has been started on aspirin daily, continues on statin therapy. Neurology recommending MRI. REVIEW OF SYSTEMS: CONSTITUTIONAL: No fever, no malaise, no fatigue. HEENT: No recent visual problems or hearing problems. Denied any sore throat. CARDIOVASCULAR: No chest pain, orthopnea, PND, no palpitations, no syncope. PULMONARY: No shortness of breath, no cough, no hemoptysis. GASTROINTESTINAL: No diarrhea, no nausea, no vomiting, no abdominal pain. NEUROLOGICAL: Right sided weakness, right facial droop. HEMATOLOGICAL: Denies any bleeding or petechiae. GENITOURINARY: Denies any burning micturition, frequency, or urgency. MUSCULOSKELETAL/RHEUMATOLOGICAL: Denies any joint pain, swelling, or any muscle pain. ENDOCRINE: Denies any polyuria or polydipsia. The rest of the 14-point review of systems is negative. PHYSICAL EXAMINATION: GENERAL: The patient is alert and oriented x3, not in any acute distress. Well developed, well nourished. HEENT: Pupils are round and equally reacting to light. EOMI. No scleral icterus. No conjunctival pallor. Normocephalic, atraumatic. No pharyngeal erythema. No thyromegaly. CARDIOVASCULAR: S1 and S2 present. No murmurs, rubs, or gallops. PULMONARY: Chest is clear to auscultation, no wheezing or crackles. ABDOMEN: Soft, nontender, nondistended, normoactive bowel sounds. No palpable organomegaly. MUSCULOSKELETAL: No joint swelling or deformity. EXTREMITIES: No cyanosis, clubbing, or pedal edema. NEUROLOGICAL: Strength 4/5 on the right upper extremity there is slight facial droop of the right. SKIN: No rashes. Assessment and Plan Assessment Right sided facial droop and weakness rule out acute stroke Gait disturbance History hypertension History hyperlipidemia History Nhan's thyroiditis Anxiety/Depression Never smoker GI prophylaxis DVT prophylaxis Full Code Plan Patient has been started on asprin therapy/plavix therapy MRI and echocardiogram ordered T4 and A1C are pending at this time Further recommendations pending The impression and plan of care has been dictated by Elle Fuchs Nurse Practitioner as directed. Dr. Judie MD I have performed a history and physical examination and medical decision making of this patient, discussed the same with the dictator, and agree with the dictators assessment and plan as written, documented as a scribe. Based on total visit time, I have performed more than 50% of this visit. Past Medical History Past Medical History: Fibromyalgia, Hyperlipidemia, Osteoarthritis (OA), Thyroid Disorder Additional Past Medical History / Comment(s): nhan. History of Any Multi-Drug Resistant Organisms: None Reported Past Surgical History: Section, Hysterectomy, Joint Replacement, Orthop edic Surgery Additional Past Surgical History / Comment(s): RIGHT KNEE REPLACED. Past Anesthesia/Blood Transfusion Reactions: Postoperative Nausea & Vomiting (PONV) Past Psychological History: Anxiety, Depression Smoking Status: Never smoker Past Alcohol Use History: None Reported Past Drug Use History: None Reported - Past Family History Father Family Medical History: Congestive Heart Failure (CHF), Coronary Artery Disease (CAD), Myocardial Infarction (SD) Additional Family Medical History / Comment(s): at age 58 from a heart attack Mother Family Medical History: Dementia Brother(s) Family Medical History: Coronary Artery Disease (CAD) Additional Family Medical History / Comment(s): down syndrome, parkinsons. 2nd brother from heart disease Sister(s) Family Medical History: No Reported History Medications and Allergies Home Medications Medication Instructions Recorded Confirmed Type DULoxetine HCL [Cymbalta] 60 mg PO HS 09/01/16 02/01/23 History Ergocalciferol [Vitamin D2 50,000 unit PO NIX 09/01/16 02/01/23 History (DRISDOL)] Levothyroxine Sodium [Synthroid] 75 mcg PO DAILY 09/01/16 02/01/23 History Meloxicam 15 mg PO HS 09/01/16 02/01/23 History Pantoprazole [Protonix] 40 mg PO BID 08/31/18 02/01/23 History amLODIPine [Norvasc] 5 mg PO DAILY 08/31/18 02/01/23 History ALPRAZolam [Xanax] 0.5 mg PO BID@1200,1800 02/01/23 02/01/23 History ALPRAZolam [Xanax] 0.5 mg PO DAILY PRN 02/01/23 02/01/23 History Atomoxetine HCl [Strattera] 40 mg PO BID@1200,1800 02/01/23 02/01/23 History Butalb/APAP/Caff 50-325-40Mg 1 tab PO Q6H PRN 02/01/23 02/01/23 History [Fioricet 50-325-40] Pilocarpine [Salagen] 5 mg PO BID 02/01/23 02/01/23 History Rosuvastatin [Crestor] 10 mg PO HS 02/01/23 02/01/23 History rOPINIRole HCL [Requip] 1 mg PO BID 02/01/23 02/01/23 History traZODone HCL 200 mg PO HS 02/01/23 02/01/23 History Allergies Allergy/AdvReac Type Severity Reaction Status Date / Time morphine Allergy Anaphylaxis Verified 02/01/23 18:11 hydromorphone [From Dilaudid] AdvReac Nausea & Verified 02/01/23 18:11 Vomiting Physical Exam Vitals: Vital Signs Temp Pulse Pulse Resp BP BP Pulse Ox 02/02/23 08:00 97.9 F 71 18 128/81 98 02/02/23 04:00 73 18 112/58 93 L 02/02/23 00:00 98.2 F 87 18 111/65 95 02/01/23 20:59 98 F 74 18 136/76 96 02/01/23 19:41 98.2 F 75 18 128/84 99 02/01/23 18:57 97.9 F 74 18 135/76 98 02/01/23 18:19 76 17 134/94 97 02/01/23 18:02 75 18 135/83 99 02/01/23 17:38 74 17 152/80 99 02/01/23 17:21 75 18 139/78 98 02/01/23 17:13 98.2 F 75 17 134/85 99 02/01/23 16:20 139/71 100 02/01/23 16:14 147/81 02/01/23 15:45 97.9 F 71 16 135/75 99 Intake and Output 02/01/23 02/02/23 02/02/23 22:59 06:59 14:59 Other: Voiding Method Toilet # Voids 1 3 Weight 77.2 kg Results CBC & Chem 7: 02/01/23 16:42 02/01/23 16:42 Labs: Abnormal Lab Results - Last 24 Hours (Table) 02/01/23 02/01/23 Range/Units 16:42 16:42 APTT 21.3 L (22.0-30.0) sec BUN 18 H (7-17) mg/dL AST 44 H (14-36) U/L ALT 36 H (4-34) U/L Creatine Kinase 327 H (30-135) U/L Thrombosis Risk Factor Assmnt - Choose All That Apply Any of the Below Risk Factors Present?: Yes Each Risk Factor Represents 2 Points: Age 61-74 years Thrombosis Risk Factor Assessment Total Risk Factor Score: 2 Thrombosis Risk Factor Assessment Level: Low Risk Assessment and Plan Time with Patient: Less than 30
--- NOTE | 2023-02-02 18:01 | CA ---
Transthoracic Echo Report Name: Ana Lilia Batista Age: 67 Gender: F : 1955 Exam Date: 02/02/2023 14:17 Exam Location: [place] [facility] Ht (in): 63 Wt (lb): 170 Ordering Physician: Manny Aj MD Attending/Referring Phys: Manager Mobile Myra Mirza RDCS Procedure CPT: Indications: stroke Cardiac Hx: Technical Quality: Fair Contrast 1: Total Dose (mL): Contrast 2: Total Dose (mL): MEASUREMENTS (Male / Female) Normal Values 2D ECHO LV Diastolic Diameter PLAX 4.7 cm 4.2 - 5.9 / 3.9 - 5.3 cm LV Systolic Diameter PLAX 2.6 cm IVS Diastolic Thickness 1.1 cm 0.6 - 1.0 / 0.6 - 0.9 cm LVPW Diastolic Thickness 1.4 cm 0.6 - 1.0 / 0.6 - 0.9 cm LV Relative Wall Thickness 0.5 RV Internal Dim ED PLAX 2.3 cm LA Volume 49.2 cm??? 18 - 58 / 22 - 52 cm??? M-MODE Aortic Root Diameter MM 2.5 cm LA Systolic Diameter MM 2.8 cm LA Ao Ratio MM 1.1 AV Cusp Separation MM 1.9 cm DOPPLER AV Peak Velocity 173.9 cm/s AV Peak Gradient 12.1 mmHg AV Mean Velocity 127.1 cm/s AV Mean Gradient 7.0 mmHg AV Velocity Time Integral 31.9 cm AI Peak Velocity 404.1 cm/s AI Peak Gradient 65.3 mmHg AI Pressure Half Time 492.9 ms LVOT Peak Velocity 117.9 cm/s LVOT Peak Gradient 5.6 mmHg LVOT Velocity Time Integral 22.7 cm MV Area PHT 3.1 cm??? Mitral E Point Velocity 76.0 cm/s Mitral A Point Velocity 102.4 cm/s Mitral E to A Ratio 0.7 MV Deceleration Time 242.2 ms MV E' Velocity 4.2 cm/s Mitral E to MV E' Ratio 18.2 FINDINGS Left Ventricle Mildly increased left ventricular wall thickness. Left ventricular cavity size normal. Normal left ventricular systolic function with no obvious regional wall motion abnormalities. Left ventricular ejection fraction is estimated at 55-60 %. Right Ventricle Enlarged right ventricle Normal right ventricular function. Right Atrium Normal right atrial size. Left Atrium Mildly increased left atrial area. Mitral Valve Structurally normal mitral valve. Mild mitral annular calcification. Trace to mild mitral regurgitation. Aortic Valve Trileaflet aortic valve. Thickened aortic valve without stenosis. Aortic valve sclerosis. Trace to mild aortic regurgitation. Tricuspid Valve Structurally normal tricuspid valve. Mild tricuspid regurgitation. Pulmonic Valve Structurally normal pulmonic valve. Trace pulmonic regurgitation. Pericardium No pericardial effusion. Aorta Normal size aortic root and proximal ascending aorta. CONCLUSIONS LVH with preserved systolic function RV enlargement Previewed by: Dr. Tank Garcia MD (Electronically Signed) Final Date: 02 Feb 2023 18:00
[2023-02-02] MEDS: ACETAMINOPHEN TAB 325 MG TAB PO PRN (18:16)
[2023-02-02] MEDS: DULoxetine HCL 60 MG CAPSULE.DR PO SCH (19:59)
[2023-02-02] MEDS: HEPARIN SODIUM,PORCINE/PF 5,000 UNIT/0.5 ML SYRINGE SQ SCH (19:59)
[2023-02-02] MEDS: traZODone HCL 100 MG TAB PO SCH (19:59)
[2023-02-02] MEDS: MELOXICAM 7.5 MG TAB PO SCH (19:59)
[2023-02-03] MEDS: LEVOTHYROXINE 75 MCG TAB PO SCH (05:43)
[2023-02-03] MEDS: CLOPIDOGREL 75 MG TAB PO SCH (08:30)
[2023-02-03] MEDS: ASPIRIN 325 MG TAB PO SCH (08:30)
[2023-02-03] MEDS: PILOCARPINE 5 MG TAB PO SCH ×2 (08:30→23:58)
[2023-02-03] MEDS: PANTOPRAZOLE 40 MG TABLET PO SCH ×2 (08:30→21:12)
[2023-02-03] MEDS: HEPARIN SODIUM,PORCINE/PF 5,000 UNIT/0.5 ML SYRINGE SQ SCH ×2 (08:30→21:13)
[2023-02-03] MEDS: amLODIPine 5 MG TAB PO SCH (08:30)
[2023-02-03] MEDS: ATORVASTATIN 40 MG TAB PO SCH (08:30)
[2023-02-03] MEDS ORDERED: ERGOCALCIFEROL 1,250 MCG (50,000 IU) CAPSULE PO SCH (09:00)
[2023-02-03] MEDS: ACETAMINOPHEN TAB 325 MG TAB PO PRN ×2 (12:03→21:12)
[2023-02-03] MEDS: ATOMOXETINE HCL 40 MG PO SCH ×2 (12:30→17:57)
--- NOTE | 2023-02-03 14:14 | P.PN ---
Subjective Progress Note Date: 02/03/23 Patient initially seen by Dr. Manny Aj. Please refer to his note for details. Patient is a 67-year-old right-handed female presented with right facial weakness and right-sided weakness and not stable walking. Patient was not taking any antiplatelet medication prior to arrival. Patient was placed on dual antiplatelet medication. Patient's symptoms started 4 AM on 01/31/2023. Her symptoms were better yesterday, and today is further better. She still has some headache. Denies any new focal symptoms. Patient's was also present. Some of the workup during his hospital visit consisted of: CT of the head is reported as no acute the cranial process. I personally reviewed the CT and I agree with the report. CT angiography of the head and neck was reported as no evidence of dissection of the cervical internal carotid artery or vertebral artery or any evidence of significant stenosis at the carotid bifurcation. No evidence of intracranial high-grade stenosis. Mild fusiform dilation of intracranial portion of the left vertebral artery up to 4 mm. NIH stroke scale per the ED team is 1 for facial droop. Stroke code was activated. No IV TPA because of low NIH and the patient is outside the window. Risk of IV TPA outweigh the benefit. Lipid panel is [place] 60s, cholesterol 169, LDL of 65 and HDL is 90. Objective - Vital Signs Vital signs: Vital Signs Temp 97.9 F 02/03/23 12:00 Pulse 79 02/03/23 12:00 Resp 18 02/03/23 12:00 BP 138/85 02/03/23 12:00 Pulse Ox 97 02/03/23 12:00 FiO2 21 02/03/23 10:02 Intake & Output 02/02/23 02/03/23 02/03/23 18:59 06:59 18:59 Intake Total 360 240 Balance 360 240 Intake: Oral 360 240 Other: Voiding Method Toilet Toilet Toilet # Voids 3 # Bowel Movements 1 - Exam Patient's mental status, speech and language functions are normal. Cranial nerves are normal. Visual hall are full, face is symmetric and tongue protrudes to the midline. Extraocular muscles intact. On muscle strength testing there is mild right pronation, no drift. The muscle strength is normal in arms and legs. No ataxia, patient is slightly tremulous bilaterally. Sensations to touch is equal. No ataxia. - Labs CBC & Chem 7: 02/01/23 16:42 02/01/23 16:42 Labs: Abnormal Lab Results - Last 24 Hours (Table) 02/02/23 Range/Units 12:53 TSH 0.397 L (0.465-4.680) mIU/L Assessment and Plan Assessment: This is a 67-year-old woman who presented because of right facial weakness and unsteady gait. Last normal state was 01/31/2023 close to midnight and woke-up next day with stroke-symptoms. Acute ischemic stroke. In ED had NIH 1 (right facial droop). On examination at present patient has only right-sided pronation but no drift. Rest of the ex amination is nonfocal. Underlying Hypertension--currently controlled Hyperlipidemia Hypothyroidism Plan: Patient started on dual antiplatelet medication with aspirin 325 mg daily and Plavix 75 mg daily (was not on antiplatelets prior). Await MRI of the brain 2-D echo revealed left ventricular hypertrophy with normal EF 55-60%. Enlargement of the right ventricle, mildly increased left atrial area. Hemoglobin A1c 5.9, TSH 0.397 which is slightly decreased, with free T4 normal 1.52. IM to address. Lipid panel with cholesterol 169, LDL 65, HDL 90, triglycerides 66. Continue Lipitor 40 mg daily. Placed on cardiac monitoring PT OT and PUBLIC SPEAKING COACH are consulted Consulted the inpatient rehab team We'll defer the rest of the medical management to the primary team For DVT prophylaxis the patient started on subcu heparin 5000 units every 12 hours Discussed with patient and her in detail.
--- NOTE | 2023-02-03 17:06 | P.PN ---
Subjective Progress Note Date: 02/03/23 This is a 67 year old female with medical history of hypertension, fibromyalgia, hashimotos thyroiditis, anxiety/depression, never smoker. Patient presents to the hospital with concern of right facial droop and bilateral lower extremity weakness. Patient reports symptoms started when patient was out of state visiting family. Patient also reports unsteady gait and wobbly at that time. Has issues with vision but nothing acute per patient. Last night patient went to bed when she awake was unable to ambulate and also having facial droop and difficulty finding words. No prior history of stroke. Not on daily aspirin therapy. Denies chest pain, denies shortness of breath. Denies dizziness or lig htheadedness. No speech or swallowing issues. Patient is admitted to the hospital rule out acute stroke and neurology has been consulted. Patient did not receive TPA due to the timing of coming to the ER for evaluation. Patient had negative brain CT and CT angiography of the brain showing no evidence of dissection of the cervical internal carotid arteries or vertebral arteries or any evidence of intracranial high grade stenosis. Mild fusiform dilation of the intracranial portion of the left vertebral artery up to 4mm. EKG showing sinus rhythm heart rate of [address] or T wave changes. AST and ALT slightly elevated. Troponin level negative. Lipid panel completed. TSH 0.397 and T4 is p ending. Patient is maintained on synthroid 75 mcg daily. All other home medications resumed. Patient has been started on aspirin daily, continues on statin therapy. Neurology recommending MRI. 02/03/2023 Patient is evaluated today sitting up. Patient feels symptoms have improved. Gait is more steady. There is slight right sided upper extremity weakness remains. The right facial droop has improved and patient and at bedside feel this has improved also. Patient is being followed closely by neurology and currently is pending MRI. Echocardiogram is done showing an EF of 55 to 60% there is an enlarged RV. Continues on asprin/plavix. Hemoglobin A1C is 5.9. TSH 0.397 and free T4 is 1.52. Hemodynamically stable. Review of Systems Constitutional: Denied any fatigue denied any fever. Cardio vascular: denied any chest pain, palpitations Gastrointestinal: denied any nausea, vomiting, diarrhea Pulmonary: Denied any shortness of breath cough Neurologic denied any new focal deficits All inpatient medications were reviewed and appropriate changes in these medications as dictated in the interval history and assessment and plan. PHYSICAL EXAMINATION: GENERAL: The patient is alert and oriented x3, not in any acute distress. Well developed, well nourished. HEENT: Pupils are round and equally reacting to light. EOMI. No scleral icterus. No conjunctival pallor. Normocephalic, atraumatic. No pharyngeal erythema. No thyromegaly. CARDIOVASCULAR: S1 and S2 present. No murmurs, rubs, or gallops. PULMONARY: Chest is clear to auscultation, no wheezing or crackles. ABDOMEN: Soft, nontender, nondistended, normoactive bowel sounds. No palpable organomegaly. MUSCULOSKELETAL: No joint swelling or deformity. EXTREMITIES: No cyanosis, clubbing, or pedal edema. NEUROLOGICAL: Strength 4.5/5 on the right upper extremity there is slight facial droop of the right. SKIN: No rashes. Assessment and Plan Assessment Right sided facial droop and weakness rule out acute stroke Gait disturbance History hypertension History hyperlipidemia History Eliza's thyroiditis Anxiety/Depression Never smoker GI prophylaxis DVT prophylaxis Full Code Plan Patient has been started on asprin therapy/plavix therapy MRI is pending will be completed on Saturday Further recommendations pending The impression and plan of care has been dictated by Elle Fuchs Nurse Practitioner as directed. Dr. Judie MD I have performed a history and physical examination and medical decision making of this patient, discussed the same with the dictator, and agree with the dictators assessment and plan as written, documented as a scribe. Based on total visit time, I have performed more than 50% of this visit. Objective - Vital Signs Vital signs: Vital Signs Temp 98.1 F 02/03/23 16:00 Pulse 85 02/03/23 16:00 Resp 18 02/03/23 16:00 BP 119/77 02/03/23 16:00 Pulse Ox 97 02/03/23 16:00 FiO2 21 02/03/23 10:02 Intake & Output 02/02/23 02/03/23 02/03/23 18:59 06:59 18:59 Intake Total 360 240 Balance 360 240 Intake: Oral 360 240 Other: Voiding Method Toilet Toilet Toilet # Voids 3 3 # Bowel Movements 1 - Labs CBC & Chem 7: 02/01/23 16:42 02/01/23 16:42 Assessment and Plan Time with Patient: Less than 30
[2023-02-03] MEDS: ALPRAZolam 0.5 MG TAB PO PRN (17:57)
[2023-02-03] MEDS: traZODone HCL 100 MG TAB PO SCH (21:09)
[2023-02-03] MEDS: MELOXICAM 7.5 MG TAB PO SCH (21:10)
[2023-02-03] MEDS: DULoxetine HCL 60 MG CAPSULE.DR PO SCH (21:10)
[2023-02-03 21:21] VITALS: RESP 16
[2023-02-04] MEDS: LEVOTHYROXINE 75 MCG TAB PO SCH (06:40)
--- NOTE | 2023-02-04 07:00 | P.CONS ---
History of Present Illness - Chief Complaint Gait Disturbance, right hemiparesthesias - History of Present Illness I had the opportunity see patient for inpatient rehab consultation. Patient admitted to [facility] February 01 acute onset gait ataxia. Seen by neurology, Dr. Manny Aj and Dr. Gagnon who did note right-sided weakness. Did review head CT. Was also seen by Dr. Dimas. Head CT, chest x-ray, angiogram CT all negative. Therapies prescribed, PT, OT, FIELD SERVICER. Previous functional history as elicited from patient: 67-year-old right-handed white female who is lives in one floor home with basement with . They share the cooking and laundry does most of the driving. Note laura ndry in basement. Patient describes independent with standing shower and gait without device. PCP Dr. Peguero. Denies tobacco or alcohol. Review of Systems Review of systems: ENT: Denies sneezes or discharge. Eyes: Denies discharge or photophobia. Cardiac: Denies chest pain or palpitation. Pulmonary: Denies cough or shortness of breath. Breast: Denies discharge or lumps. Gastrointestinal: Denies nausea, emesis, constipation, diarrhea. Genitourinary: Denies discharge or frequency. Musculoskeletal: Long-standing since discomforts in back, right hip and knee history of previous surgeries.. Neurologic: Right-sided weakness that is improved from admission. Endocrine: Denies shakes or sweats. Oncology: Denies cancers. Dermatologic: Denies rash, itching, pruritus. ALLERGY/immunology: Denies sneezes, rashes. Past Medical History Past Medical History: Fibromyalgia, Hyperlipidemia, Osteoarthritis (OA), Thyroid Disorder Additional Past Medical History / Comment(s): nhan. History of Any Multi-Drug Resistant Organisms: None Reported Past Surgical History: Section, Hysterectomy, Joint Replacement, Orthopedic Surgery Additional Past Surgical History / Comment(s): RIGHT KNEE REPLACED. Past Anesthesia/Blood Transfusion Reactions: Postoperative Nausea & Vomiting (PONV) Past Psychological History: Anxiety, Depression Smoking Status: Never smoker Past Alcohol Use History: None Reported Past Drug Use History: None Reported - Past Family History Father Family Medical History: Congestive Heart Failure (CHF), Coronary Artery Disease (CAD), Myocardial Infarction (MS) Additional Family Medical History / Comment(s): at age 58 from a heart attack Mother Family Medical History: Dementia Brother(s) Family Medical History: Coronary Artery Disease (CAD) Additional Family Medical History / Comment(s): down syndrome, parkinsons. 2nd brother from heart disease Sister(s) Family Medical History: No Reported History Medications and Allergies Home Medications Medication Instructions Recorded Confirmed Type DULoxetine HCL [Cymbalta] 60 mg PO HS 09/01/16 02/01/23 History Ergocalciferol [Vitamin D2 50,000 unit PO NIX 09/01/16 02/01/23 History (DRISDOL)] Levothyroxine Sodium [Synthroid] 75 mcg PO DAILY 09/01/16 02/01/23 History Meloxicam 15 mg PO HS 09/01/16 02/01/23 History Pantoprazole [Protonix] 40 mg PO BID 08/31/18 02/01/23 History amLODIPine [Norvasc] 5 mg PO DAILY 08/31/18 02/01/23 History ALPRAZolam [Xanax] 0.5 mg PO BID@1200,1800 02/01/23 02/01/23 History ALPRAZolam [Xanax] 0.5 mg PO DAILY PRN 02/01/23 02/01/23 History Atomoxetine HCl [Strattera] 40 mg PO BID@1200,1800 02/01/23 02/01/23 History Butalb/APAP/Caff 50-325-40Mg 1 tab PO Q6H PRN 02/01/23 02/01/23 History [Fioricet 50-325-40] Pilocarpine [Salagen] 5 mg PO BID 02/01/23 02/01/23 History Rosuvastatin [Crestor] 10 mg PO HS 02/01/23 02/01/23 History rOPINIRole HCL [Requip] 1 mg PO BID 02/01/23 02/01/23 History traZODone HCL 200 mg PO HS 02/01/23 02/01/23 History Allergies Allergy/AdvReac Type Severity Reaction Status Date / Time morphine Allergy Anaphylaxis Verified 02/01/23 18:11 hydromorphone [From Dilaudid] AdvReac Nausea & Verified 02/01/23 18:11 Vomiting Physical Exam Vitals: Vital Signs Temp Pulse Resp BP Pulse Ox FiO2 02/04/23 03:54 98.3 F 78 16 126/72 94 L 02/03/23 21:15 97.3 F L 74 16 134/82 95 02/03/23 16:00 98.1 F 85 18 119/77 97 02/03/23 14:00 79 18 02/03/23 12:00 97.9 F 79 18 138/85 97 02/03/23 10:02 96 21 02/03/23 08:00 97.6 F 74 18 125/82 96 Intake and Output 02/03/23 02/03/23 02/04/23 14:59 22:59 06:59 Intake Total 240 360 Balance 240 360 Intake: Oral 240 360 Other: Voiding Method Toilet Toilet # Voids 3 2 Skin: Good color, texture, turgor. General: Medium build and comfortable appearance. Head: Normocephalic, atraumatic. Eyes: Symmetric. Pupils equal round. Ears: Symmetric. Hearing within normal limits. Mouth: Clear. Neck: Supple. Carotid without bruit. Cardiac: Regular rate and rhythm. Lungs: Clear anteriorly and posteriorly. Abdomen: Soft active nontender. Extremities: Normal tone. Neurological: Mental status: Alert, cooperative, pleasant. Cranial nerves: Symmetric facial tone and trapezius. Motor: Active movement all 4 limbs with mild weakness right hand and arm. Sensation: Intact throughout. DTRs: Symmetric and equal throughout. Mobility: Did not attempt to sit or stand this early a.m. Results CBC & Chem 7: 02/01/23 16:42 02/01/23 16:42 Assessment and Plan (1) Cerebrovascular accident (CVA) Current Visit: Yes Status: Acute Code(s): I63.9 - CEREBRAL INFARCTION, UNSPECIFIED SNOMED Code(s): 023595996 Plan: Comments and plan: Patient does appear to have some mild right-sided deficits. Await PT, OT, FIELD SERVICER notes which insurance will require for possible RPR. We'll notify STEPHANIE Mota and new rehab of referral.
[2023-02-04 07:44] LABS: Albumin 3.5 g/dL (3.5-5.0); Calcium 8.9 mg/dL (8.4-10.2); Potassium 4.5 mmol/L (3.5-5.1); Total Bilirubin 0.4 mg/dL (0.2-1.3)
[2023-02-04] MEDS: CLOPIDOGREL 75 MG TAB PO SCH (09:44)
[2023-02-04] MEDS: ATORVASTATIN 40 MG TAB PO SCH (09:44)
[2023-02-04] MEDS: amLODIPine 5 MG TAB PO SCH (09:44)
[2023-02-04] MEDS: ASPIRIN 325 MG TAB PO SCH (09:44)
[2023-02-04] MEDS: PANTOPRAZOLE 40 MG TABLET PO SCH (09:44)
[2023-02-04] MEDS: PILOCARPINE 5 MG TAB PO SCH (09:44)
[2023-02-04] MEDS: HEPARIN SODIUM,PORCINE/PF 5,000 UNIT/0.5 ML SYRINGE SQ SCH (09:44)
--- NOTE | 2023-02-04 09:47 | MR ---
EXAMINATION TYPE: MR brain wo con DATE OF EXAM: 02/04/2023 COMPARISON: NONE HISTORY: Rt facial and leg weakness TECHNIQUE: T1-weighted sagittal, T2, FLAIR, and diffusion axial, and T2 coronal coronal views of the brain are submitted. FINDINGS: There is no evidence of acute ischemia. There are focal areas of abnormal signal seen scattered thro ughout the white matter bilaterally greatest within the left frontal lobe measuring 9 mm. No midline shift or mass effect mild generalized degenerative change. Craniocervical junction maintained. Sella turcica has a normal appearance. Nasal septal deviation. Orbits are symmetric. Mild changes of chronic sinusitis. No cerebellopontine angle mass. IMPRESSION: 1. No acute intracranial process. There is mild generalized degenerative change and mild nonspecific white matter areas of abnormal signal most typical of remote white matter ischemia.
[2023-02-04 10:39] VITALS: TEMP 98.1
[2023-02-04] MEDS: ATOMOXETINE HCL 40 MG PO SCH (12:54)
[2023-02-04 14:45] VITALS: BP 132/74; PULSE 75
--- NOTE | 2023-02-04 18:11 | P.PN ---
Subjective Progress Note Date: 02/04/23 02/04/2023: Patient was seen for a follow-up. Patient's was also present today. Patient states that she still has intermittent headache, which is migratory, involves the front or the back or the side of the head. At present she has no headache. Denies any new focal symptoms. All symptoms have resolved. 02/03/2023: Patient initially seen by Dr. Manny Aj. Please refer to his note for details. Patient is a 67-year-old right-handed female presented with right facial weakness and right-sided weakness and not stable walking. Patient was not taking any antiplatelet medication prior to arrival. Patient was placed on dual antiplatelet medication. Patient's symptoms started 4 AM on 01/31/2023. Her symptoms were better yesterday, and today is further better. She still has some headache. Denies any new focal symptoms. Patient's was also pr esent. Some of the workup during his hospital visit consisted of: CT of the head is reported as no acute the cranial process. I personally reviewed the CT and I agree with the report. CT angiography of the head and neck was reported as no evidence of dissection of the cervical internal carotid artery or vertebral artery or any evidence of significant stenosis at the carotid bifurcation. No evidence of intracranial high-grade stenosis. Mild fusiform dilation of intracranial portion of the left vertebral artery up to 4 mm. NIH stroke scale per the ED team is 1 for facial droop. Stroke code was activated. No IV TPA because of low NIH and the patient is outside the window. Risk of IV TPA outweigh the benefit. Lipid panel is Irving 60s, cholesterol 169, LDL of 65 and HDL is 90. Objective - Vital Signs Vital signs: Vital Signs Temp 98.1 F 02/04/23 08:00 Pulse 77 02/04/23 08:00 Resp 16 02/04/23 08:00 BP 114/69 02/04/23 08:00 Pulse Ox 96 02/04/23 09:28 FiO2 21 02/03/23 10:02 Intake & Output 02/03/23 02/04/23 02/04/23 18:59 06:59 18:59 Intake Total 600 118 Balance 600 118 Intake: Oral 600 118 Other: Voiding Method Toilet Toilet Toilet # Voids 3 1 - Exam Patient's mental status, speech and language functions are normal. Cranial nerves are normal. Visual hall are full, face is symmetric and tongue protrudes to the midline. Extraocular muscles intact. On muscle strength testing there is mild right pronation, no drift. The muscle strength is normal in arms and legs. No ataxia, patient is slightly tremulous bilaterally. Sensations to touch is equal. No ataxia. - Labs CBC & Chem 7: 02/01/23 16:42 02/04/23 06:16 Labs: Abnormal Lab Results - Last 24 Hours (Table) 02/04/23 Range/Units 06:16 Total Protein 6.0 L (6.3-8.2) g/dL Assessment and Plan Assessment: This is a 67-year-old woman who presented because of right facial weakness and unsteady gait. Last normal state was 01/31/2023 close to midnight and woke-up next day with stroke-symptoms. Probable TIA. No evidence of an acute stroke noted on MRI. Her current NIH stroke scale is 0. Underlying Hypertension--currently controlled Hyperlipidemia Hypothyroidism Plan: Patient started on dual antiplatelet medication with aspirin 325 mg daily and Plavix 75 mg daily (was not on antiplatelets prior). Recommend patient to continue aspirin 81 mg and Plavix 75 mg for 21 days then stop Plavix and continue aspirin indefinitely. MRI of the brain revealed no acute intracranial process. There is mild generalized degenerative change and mild nonspecific white matter areas of abnormal signal most typical of remote white matter ischemia. I personally reviewed MRI, I agree with the findings. 2-D echo revealed left ventricular hypertrophy with normal EF 55-60%. Enlargement of the right ventricle, mildly increased left atrial area. Hemoglobin A1c 5.9, TSH 0.397 which is slightly decreased, with free T4 normal 1.52. IM to address. Lipid panel with cholesterol 169, LDL 65, HDL 90, triglycerides 66. Continue Lipitor 40 mg daily. Patient on telemetry, showing no arrhythmia. We'll defer the rest of the medical management to the primary team Neurologically clear for discharge. Discussed with patient and her in detail.
[2023-02-05] MEDS ORDERED: ASPIRIN 81 MG PO SCH (09:00)
--- NOTE | 2023-02-06 01:49 | P.DS ---
Providers Date of admission: 02/03/23 17:07 Expected date of discharge: 02/04/23 Attending physician: Kaila Concepcion MD Consults: 02/01/23 18:40 Consult Physician Urgent Consulting Provider: Manny Aj Consult Reason/Comments: Facial droop, suspected CVA Do you want consulting provider notified?: Yes 02/02/23 12:45 Consult Physician Urgent Consulting Provider: Kilo Galvan Consult Reason/Comments: stroke, right sided weakness. inpatient rehab Do you want consulting provider notified?: Yes Primary care physician: [facility] Course: Final diagnosis Right sided facial droop and weakness ruled out acute stroke, probable TIA Gait disturbance secondary to above History hypertension History hyperlipidemia History Eliza's thyroiditis Anxiety/Depression Never smoker GI prophylaxis DVT prophylaxis Full Code Discharge disposition Patient is being discharged in a stable condition with guarded prognosis to home. Patient will follow-up with Dr. Peguero in the outpatient setting upon discharge. Patient is to continue with aspirin and Plavix for 21 days and then continue just aspirin only and close outpatient follow-up with neuro as scheduled. Total time taken is greater than 35 minutes. Hospital course This is a 67-year-old female who was recently admitted with right-sided facial droop and weakness underwent MRI of brain with neurological workup was negative for acute CVA. Patient probable TIA and symptoms have resolved. Patient did have some weakness evaluated by physical therapy although doing well and plans for returning home on discharge. Patient has been cleared by consultation and will continue on aspirin and Plavix for 21 days and then may discontinue Plavix and continue with aspirin indefinitely. Patient to follow up with neurology outpatient. Please refer to consultation notes for further HPI. Currently no reports of chest pain, shortness of breath, or palpitations. Patient is afebrile. No reports of nausea or vomiting and patient is tolerating diet. Patient will be discharged home today. Physical exam: Gen: This is a 67-year-old female who is awake, alert and oriented 3, well- developed, well-nourished, obese HEENT: Head is atraumatic, normocephalic. Pupils equal, round. Sclerae is anicteric. NECK: Supple. No JVD. No lymphadenopathy. No thyromegaly. LUNGS: Clear to auscultation. No wheezes or rhonchi. No intercostal retractions. HEART: Regular rate and rhythm. No murmur. ABDOMEN: Soft. Bowel sounds are present. No masses. No tenderness. EXTREMITIES: No pedal edema. No calf tenderness. NEUROLOGICAL: Patient is awake, alert and oriented x3. No right side deficits noted on exam. Cranial nerves 2 through 12 are grossly intact. Please refer to medication reconciliation sheet for a list of medications. The impression and plan of care has been dictated by Nataly Díaz, Nurse Practitioner as directed. Dr. Judie MD I have performed a history and examination and MDM of this patient, discussed the same with the dictator, and agree with the dictator's assessment and plan as written ,documented as a scribe. Based on total visit time, I have performed more than 50% of the visit. Patient Condition at Discharge: Stable Plan - Discharge Summary Discharge Rx Participant: No New Discharge Prescriptions: New Atorvastatin [Lipitor] 40 mg PO DAILY #30 tab Aspirin 325 mg PO DAILY #30 tab Clopidogrel [Plavix] 75 mg PO DAILY 21 Days #21 tab Continue Meloxicam 15 mg PO HS Ergocalciferol [Vitamin D2 (DRISDOL)] 50,000 unit PO NIX Levothyroxine Sodium [Synthroid] 75 mcg PO DAILY DULoxetine HCL [Cymbalta] 60 mg PO HS amLODIPine [Norvasc] 5 mg PO DAILY Pantoprazole [Protonix] 40 mg PO BID Butalb/APAP/Caff 50-325-40Mg [Fioricet 50-325-40] 1 tab PO Q6H PRN PRN Reason: Migraine Headache ALPRAZolam [Xanax] 0.5 mg PO DAILY PRN PRN Reason: Anxiety ALPRAZolam [Xanax] 0.5 mg PO BID@1200,1800 Pilocarpine [Salagen] 5 mg PO BID Atomoxetine HCl [Strattera] 40 mg PO BID@1200,1800 traZODone HCL 200 mg PO HS rOPINIRole HCL [Requip] 1 mg PO BID Discontinued Rosuvastatin [Crestor] 10 mg PO HS Discharge Medication List DULoxetine HCL [Cymbalta] 60 mg PO HS 09/01/16 [History] Ergocalciferol [Vitamin D2 (DRISDOL)] 50,000 unit PO NIX 09/01/16 [History] Levothyroxine Sodium [Synthroid] 75 mcg PO DAILY 09/01/16 [History] Meloxicam 15 mg PO HS 09/01/16 [History] Pantoprazole [Protonix] 40 mg PO BID 08/31/18 [History] amLODIPine [Norvasc] 5 mg PO DAILY 08/31/18 [History] ALPRAZolam [Xanax] 0.5 mg PO BID@1200,1800 02/01/23 [History] ALPRAZolam [Xanax] 0.5 mg PO DAILY PRN 02/01/23 [History] Atomoxetine HCl [Strattera] 40 mg PO BID@1200,1800 02/01/23 [History] Butalb/APAP/Caff 50-325-40Mg [Fioricet 50-325-40] 1 tab PO Q6H PRN 02/01/23 [History] Pilocarpine [Salagen] 5 mg PO BID 02/01/23 [History] rOPINIRole HCL [Requip] 1 mg PO BID 02/01/23 [History] traZODone HCL 200 mg PO HS 02/01/23 [History] Aspirin 325 mg PO DAILY #30 tab 02/04/23 [Rx] Atorvastatin [Lipitor] 40 mg PO DAILY #30 tab 02/04/23 [Rx] Clopidogrel [Plavix] 75 mg PO DAILY 21 Days #21 tab 02/04/23 [Rx] Follow up Appointment(s)/Referral(s): Tenzin Peguero MD [Primary Care Provider] - 1-2 days [facility], [NON-STAFF] - Manny Aj MD [STAFF PHYSICIAN] - 1 Week (Neurology) Patient Instructions/Handouts: Ischemic Stroke (GEN) Activity/Diet/Wound Care/Special Instructions: Activity Limited until follow-up Follow-up with neurology outpatient in 1-2 weeks Follow-up with primary care provider on discharge Continue taking medications as prescribed Continue taking Plavix for 21 days along with aspirin and discuss with neurology and/or primary care provider about continuing large dose aspirin or baby aspirin Discharge Disposition: HOME SELF-CARE
== END 2023-02-04 15:30 | disposition home health service (06) | DRG 69 ==
LOC: EC 15:41 → 3SCARD 18:43 → OBSVTOIN 02-03 17:07
PROVIDERS: ADMIT Internal Medicine; ATTEND Internal Medicine
DX: G45.9 Transient cerebral ischemic attack, unspecified (principal); R27.8 Other lack of coordination; R29.810 Facial weakness; M79.7 Fibromyalgia; R29.701 NIHSS score 1; E78.5 Hyperlipidemia, unspecified; R20.2 Paresthesia of skin; E06.3 Autoimmune thyroiditis; I11.9 Hypertensive heart disease without heart failure; F32.A Depression, unspecified; F41.9 Anxiety disorder, unspecified; M19.90 Unspecified osteoarthritis, unspecified site; Z96.641 Presence of right artificial hip joint; Z79.899 Other long term (current) drug therapy; Z79.890 Hormone replacement therapy; Z88.5 Allergy status to narcotic agent; Z88.6 Allergy status to analgesic agent
CPT/HCPCS: 36415; 70450; 70496; 70498; 70551; 71046; 80053; 80061; 82550; 83036; 84439; 84443; 84484; 85025; 85610; 85730; 93005; 93306; 94760; 99285; 99291

== ENCOUNTER → 2023-04-16 | Outpatient (CLI) | payer MEDICARE ==
--- NOTE | 2023-05-24 09:48 | CE ---
CARDIAC ELECTROPHYSIOLOGY REPORT STUDY PERFORMED: 30 days event monitor. SUMMARY: The patient was monitored for 30 days. The baseline rhythm appeared to be sinus mechanism. The patient did have multiple episodes of sinus tachycardia. The patient did have premature ventricular contraction noted. No significant sinus pause or sinus arrest seen. No advanced AV block seen. CONCLUSION: 1. This is a 30 days event monitor. 2. The baseline rhythm appeared to be sinus mechanism. 3. The patient did have premature ventricular contraction. 4. The patient did have multiple episodes of sinus tachycardia. 5. No atrial fibrillation or atrial flutter noted. 6. No advanced AV block seen. MMODL / IJN: [id number] /
== END | disposition home or self-care (01) ==
LOC: RADECHMAIN 12:59
PROVIDERS: ATTEND Psychiatry & Neurology Neurology
DX: I48.0 Paroxysmal atrial fibrillation (principal); R00.0 Tachycardia, unspecified
CPT/HCPCS: 93270

== ENCOUNTER → 2023-05-28 | Outpatient (CLI) | payer MEDICARE ==
--- NOTE | 2023-05-28 21:33 | BD ---
EXAMINATION TYPE: Axial Bone Density DATE OF EXAM: 05/28/2023 CLINICAL HISTORY: 67 years old Female. ICD-10 CODE: M81.0 osteoporosis Height: 62 Weight: 166.6 FRAX RISK QUESTIONS: Alcohol (3 or more units per day): no Family History (Parent hip fracture): no Glucocorticoids (More than 3mos): no History of Fracture in Adulthood: Spine Secondary Osteoporosis: 1. Type 1 Diabetes: no 2. Hyperthyroidism: no 3. Menopause before 45: no 4. Malnutrition: no 5. Chronic liver disease: no Rheumatoid Arthritis: no Current Tobacco Use: no RISK FACTORS HISTORY OF: Hip Fracture (Right/Left): no Spine Fracture: compression fx in lumbar spine When: 2015 History of Wrist Fracture: no Surgery to Spine/Hip(right/left)/Wrist (right/left): Rt hip replaced When: 2020 Family History of Osteoporosis: no Active: no Diet low in dairy products/other sources of calcium: yes Postmenopausal woman: yes Take estrogen and/or progesterone medications: no Lost more than 2 inches in height since high school: yes Frequent falls: yes Poor Health: no Hyperparathyroidism: no Adrenal Insufficiency: no MEDICATIONS: Prednisone or other steroids: no Thyroid Medications: levothyroxin Which medication: past 10 years Osteoporosis Medications: no Additional Medications: BP Meds, Cholesterol, Reflux Meds, Anxiety Meds, Multi Vit., Vit D Additional History: EXAM MEASUREMENTS: Bone mineral density about the L hip (g/cm2): 0.941 T Score values are as follows: -----L Neck: -0.8 -----L Total: -0.5 Z Score values are as follows: -----L Neck: 05 -----L Total: 0.6 Bone mineral density has: decreased -5.4 % since study of: 07/20/2019 Bone mineral density about the L Wrist (g/cm2): 0.479 T Score values are as follows: -----Dist. R+U: -2.4 -----Prox. R+U: -2.8 -----Radius total: -3.2 Z Score values are as follows: -----Dist. R+U: -08 -----Prox. R+U: -1.2 -----Radius total: -1.6 Bone mineral density has: decreased -16.4 % since study of: 07/20/2019 FRAX%s: The graph provided illustrates a 13.0% chance for a major osteoporotic fx and a 0.9% chance f or the hips probability for fx in 10 years time. IMPRESSION: Osteoporosis (T Score less than -2.5). There is increased fracture risk and therapy is usually indicated based on age. Re-Screen 1-2 years. NOTE: T-SCORE=SD OF THE YOUNG ADULT MEAN.
--- NOTE | 2023-05-29 13:04 | MM ---
Reason for Exam: Screening (asymptomatic). Last mammogram was performed 2 year(s) and 7 month(s) ago. Patient History: Menarche at age 13. First Full-Term at age 22. Left ovary removed at age 50. Right ovary removed at age 50. Hysterectomy at age 50. Postmenopausal. Other cancer. Patient used Estrogen and Progesterone for 1 year. 2000, Benign Excisional Biopsy on the right side. Risk Values: Lacey 5 year model risk: 1.8%. NCI Lifetime model risk: 6.1%. Prior Study Comparison: 03/04/2017 Screening Mammogram, [facility]. 07/20/2019 Bilateral Screening Mammogram, [facility]. 11/03/2020 Bilateral Screening Mammogram, [facility]. Tissue Density: The breast tissue is heterogeneously dense. This may lower the sensitivity of mammography. Findings: Analyzed By CAD. Pattern appears symmetrical and stable. No significant interval change is evident. Benign calcifications within the right breast. The core marker is within the right breast. No suspicious groups of microcalcifications, spiculated or lobular masses, architectural distortion or other secondary signs of malignancy are mammographically apparent. Overall Assessment: Benign, BI-RAD 2 Management: Screening Mammogram of both breasts in 1 year. A negative mammogram report should not preclude additional follow up of suspicious palpable abnormalities. Patient should continue monthly self breast exam. A clinical breast exam by your physician is recommended on an annual basis and results should be correlated with mammographic findings. Electronically signed and approved by: Matheus Canales D.O. Radiologis
== END | disposition home or self-care (01) ==
LOC: RADBDWWP 12:30
PROVIDERS: ATTEND Internal Medicine Geriatric Medicine
DX: Z12.31 Encounter for screening mammogram for malignant neoplasm of breast (principal); M81.0 Age-related osteoporosis without current pathological fracture; M85.89 Other specified disorders of bone density and structure, multiple sites; Z78.0 Asymptomatic menopausal state
CPT/HCPCS: 77063; 77067; 77080

== ENCOUNTER → 2024-04-04 | Outpatient (CLI) | payer MEDICARE ==
--- NOTE | 2024-04-04 14:23 | MR ---
EXAMINATION TYPE: MR brain wo/w con DATE OF EXAM: 04/04/2024 2:01 PM CLINICAL INDICATION:Female, 68 years old with history of R41.3 MEMORY LOSS; PHH, Frequent memory loss , severe headaches, loss of balance. COMPARISON: 02/04/2023 TECHNIQUE: Multi planar, multi sequence imaging was performed through the brain including: T1, T2, In version recovery, susceptibility weighted imaging and gradient echo imaging and Diffusion weighted im aging. The patient was then given intravenous contrast and multi planar, T1 fat-saturation images wer e obtained. IV Contrast: 7.5 cc Gadavist FINDINGS: Mild cerebral atrophy with proportional dilation of ventricular system. Diffusion-weighted imaging s hows no evidence of restricted diffusion to suggest acute/subacute infarct. Intracranial arterial edna w voids are maintained. Midline structures show no abnormality. Scattered foci of high T2 signal inte nsity are seen within the periventricular white matter. The susceptibility weighted images do not rev eal any evidence for micro-hemorrhage. After administration of gadolinium, no abnormal enhancement is seen. Developmental venous anomaly in the left parietal region. The bone marrow signal is within normal limits. Paranasal sinuses and mastoid air cells: No significant paranasal sinus disease. Visualized orbits: Bilateral aphakia IMPRESSION: Overall exam is stable to 02/04/2023. 1. No evidence of intracranial mass, acute/subacute infarct, or abnormal enhancement. 2. Nonspecific white matter changes, likely related to small vessel ischemic disease. 3. Possible left developmental venous anomaly
== END | disposition home or self-care (01) ==
LOC: RADMRIMAIN 13:14
PROVIDERS: ATTEND Internal Medicine Geriatric Medicine
DX: R41.3 Other amnesia (principal)
CPT/HCPCS: 70553; A9585

== ENCOUNTER → 2024-07-08 | Outpatient (CLI) | payer MEDICARE ==
--- NOTE | 2024-07-21 12:37 | MM ---
Reason for Exam: Screening (asymptomatic). Last mammogram was performed 1 year(s) and 1 month(s) ago. Patient History: Menarche at age 13. First Full-Term at age 22. Left ovary removed at age 50. Right ovary removed at age 50. Hysterectomy at age 50. Postmenopausal. Other cancer. Patient used Estrogen and Progesterone for 1 year. 1999, Benign Excisional Biopsy on the right side. Risk Values: Lacey 5 year model risk: 1.8%. NCI Lifetime model risk: 5.9%. Prior Study Comparison: 07/20/2019 Bilateral Screening Mammogram, [facility]. 11/03/2020 Bilateral Screening Mammogram, [facility]. 05/28/2023 Bilateral MG 3D screening mammo w/cad, [facility]. Tissue Density: There are scattered areas of fibroglandular density. Findings: Analyzed By CAD. There is no suspicious group of microcalcifications or new suspicious mass in either breast. Benign calcifications. Overall Assessment: Benign, BI-RAD 2 Management: Screening Mammogram of both breasts in 1 year. . Patient should continue monthly self-breast exams. A clinical breast exam by your physician is recommended on an annual basis. This exam should not preclude additional follow-up of suspicious palpable abnormalities. Note on Lacey scores and lifetime risk: 1. A Lacey score greater than 3% is considered moderate risk. If this is the case, consider specialist referral to assess eligibility for a risk reducing agent. 2. If overall lifetime risk for the development of breast cancer is 20% or higher, the patient may qualify for future screening with alternating mammogram and breast MRI. [facility], , 07/08/2024 1:34 PM. Electronically signed and approved by: Tenzin Scherer M.D. Radiologis
== END | disposition home or self-care (01) ==
LOC: RADMAMWWP 12:22
PROVIDERS: ATTEND Internal Medicine Geriatric Medicine
CPT/HCPCS: 77063; 77067

== ENCOUNTER → 2024-08-17 | Outpatient (CLI) | payer MEDICARE ==
[~2024-08-17] MED LIST changes: -LACTATED RINGERS 1,000 ML IV SCH; -LIDOCAINE 1% (10MG/ML) FOR IV START INTRADERMA PRN; +REGADENOSON 0.4 MG/5 ML SYRINGE IV PRN
--- NOTE | 2024-08-17 11:39 | CA ---
Lexiscan Nuclear Stress Test Report Name: Ana Lilia Batista Exam Date: 08/17/2024 10:41 Exam Location: [facility] Ht (in): 63 Wt (lb): 169 BSA: 1.80 Ordering Phys: Tenzin Peguero MD Referring Phys: Ila Tellez Technologist: RAMOS Age: 68 Gender: F : 1955 Procedure CPT: Indications: R07.9 CHEST PAIN ICD-10 Codes: Patient History: Chest pain and hypertension Medications: Meds past 24 hrs: Pretest Chest Pain: STRESS TEST Lexiscan Protocol Exercise Duration (min:sec): 02:[address] Depressions (mm): Angina Score: Rhoades Score: Resting HR (bpm): 70 Peak HR (bpm): 90 Resting BP (mmHg): 122 / 66 Peak BP (mmHg): 131 / 71 MPHR: 152 Target HR: 129 % MPHR: 59 METS: 1.0 Total Dose: Peak Dose: Atropine: Double Product: 53944 BP Response: Stress Termination: Infusion complete Stress Symptoms: Nausea. Stress Summary: ECG ANALYSIS Resting ECG: Sinus rhythm. Normal conduction. No arrhythmias. Normal repolarization. Stress ECG: No ECG changes from baseline with Lexiscan infusion. CONCLUSIONS No ECG evidence of ischemia with Lexiscan infusion. Nuclear test results to follow. Dr. Freddie Gagnon MD (Electronically Signed) Final Date: 17 August 2024 11:38
--- NOTE | 2024-08-17 15:37 | NM ---
EXAMINATION TYPE: NM stress lexiscan cardiolite DATE OF EXAM: 08/17/2024 COMPARISON: NONE CLINICAL INDICATION: Female, 68 years old with history of R07.9 chest pain; TECHNIQUE: After the intravenous administration of 9.72 mCi Tc 99m Sestamibi - Cardiolite resting SP ECT images acquired 60 minutes post injection. The patient received 0.4mg Lexiscan, 24.9 mCi Tc 99m Sestamibi - Stress images obtained [address] injection FINDINGS: Review of stress and rest SPECT images demonstrates questionable small reversible perfusion defect in volving the apical anterior, inferior lateral and inferoseptal wall. Stress-induced ischemia in the d ifferential diagnosis. Gated analysis shows an estimated left ventricular ejection fraction of 60 %. Referring clinician office notified by telephone 08/17/2024 at 3:35 PM. IMPRESSION: Findings suggestive of small reversible perfusion defect involving the apical anterior, inferior late ral and inferoseptal wall. Stress-induced ischemia in the differential diagnosis. [facility], , 08/17/2024 3:35 PM
== END | disposition home or self-care (01) ==
LOC: RADNMMAIN 09:07
PROVIDERS: ATTEND Internal Medicine Geriatric Medicine
DX: R07.9 Chest pain, unspecified (principal); I10 Essential (primary) hypertension
CPT/HCPCS: 93017; 78452; A9500; J2785

== ENCOUNTER → 2024-09-24 | Outpatient (CLI) | payer MEDICARE ==
[2024-09-24 15:59] LABS: HCT 33.8 % (37.2-46.3); HGB 10.5 g/dL (12.0-15.0); MCH 27.3 pg (27.0-32.0); MCHC 31.1 g/dL (32.0-37.0); Mean Platelet Volume 9.4 FL (9.5-12.2); NRBC Per 100 WBC 0 X 10*3/uL (0.00-0.01); Platelet Count 334 X 10*3/uL (140-440); RBC 3.84 X 10*6/uL (4.10-5.20); WBC 9.45 X 10*3/uL (4.50-10.00)
[2024-09-24 16:04] LABS: Blood Urea Nitrogen 18.9 mg/dL (9.0-27.0); Carbon Dioxide 26.5 mmol/L (21.6-31.8); Chloride 105 mmol/L (96-109); Potassium 4.2 mmol/L (3.5-5.5); Sodium 141 mmol/L (135-145)
== END | disposition home or self-care (01) ==
LOC: LABPAT 11:39
PROVIDERS: ATTEND Internal Medicine Interventional Cardiology
DX: Z01.812 Encounter for preprocedural laboratory examination (principal); R07.9 Chest pain, unspecified
CPT/HCPCS: 80051; 82565; 84520; 85027

== ENCOUNTER 2024-09-29 06:11 | Day surgery (SDC) | payer MEDICARE ==
[2024-09-24 16:08] VITALS: BMI 30.1
[~2024-09-29 06:11] MED LIST changes: +ALPRAZolam 0.25 MG TAB PO PRN; +ALPRAZolam 0.5 MG TAB PO PRN; +NITROGLYCERIN SL TABS 0.4 MG TAB SUBLINGUAL PRN; -REGADENOSON 0.4 MG/5 ML SYRINGE IV PRN
[2024-09-29 07:18] VITALS: RESP 16; TEMP 97
[2024-09-29] MEDS: ASPIRIN 325 MG TAB PO STA (07:19)
[2024-09-29] MEDS: SODIUM CHLORIDE 0.9% 1,000 ML in EMPTY BAG 1 BAG IV SCH (07:19)
[2024-09-29] MEDS: IV FLUID CONTINUATION 1,000 ML IV ONE (07:20)
[2024-09-29] MEDS: HEPARIN SODIUM,PORCINE 10,000 UNIT in SODIUM CHLORIDE 0.9% 1,000 ML IRRIGATION ONE (07:29)
[2024-09-29] MEDS: HEPARIN SODIUM,PORCINE (1 ML) 2,500 UNIT in SODIUM CHLORIDE 0.9% 250 ML IRRIGATION ONE (07:30)
[2024-09-29] MEDS: MIDAZOLAM 2 MG/2 ML VIAL IVP ONE (07:48)
[2024-09-29] MEDS: LIDOCAINE 1% INJ 10MG/ML (20 ML MDV) SQ ONE (07:59)
[2024-09-29] MEDS: VERAPAMIL SYRINGE (5 MG/10 ML) INTRAARTER ONE (07:59)
[2024-09-29] MEDS: fentaNYL (PF) 50 MCG/ML 2 ML AMP IVP ONE (08:04)
[2024-09-29] MEDS: IOPAMIDOL-370 100ML BTL INJ ONE (08:13)
[2024-09-29] MEDS ORDERED: RX INFO: IV CONTRAST WAS GIVEN 1 EACH MISC MISCELLANE PRN (08:18)
--- NOTE | 2024-09-29 08:22 | P.PCN ---
Date of Procedure: 09/29/24 Operative Findings: CARDIAC CATHETERIZATION PERFORMING PHYSICIAN: Pa Campos MD, RPVI PROCEDURE PERFORMED: 1. Selective right and left coronary angiogram 2. Left heart catheterization 3. Ultrasound-guided access of the right radial artery INDICATION: Symptomatic 69-year-old female patient with high risk features on the stress test COMPLICATION: None APPROACH: Right radial artery LEVEL OF SEDATION: Moderate with a sedation length of 16 minutes PROCEDURE DESCRIPTION: After obtaining an informed consent, the patient was brought to cardiac slab conditioner supervisor. Local anesthesia was performed using lidocaine subcutaneously. The right radial artery was cannulated using Seldinger technique, the guidewire passed easily, following that we advanced a 5-Moldovan sheath dilator assembly, the wire and dilator were removed and sheath was flushed. Following that, 2 mg of verapamil along with 5000 unit heparin were given. Selective right and left coronary angiogram using a 6-Moldovan JR4 and JL 3.5 catheters. Following that we did left heart catheterization using 6-Moldovan pigtail catheter. The procedure was completed there was no complication. SELECTIVE CORONARY ANGIOGRAM: The right coronary artery: Large-caliber vessel and dominant vessel appears to be angiographically normal Left main: Is angiographically normal The left circumflex: Large-caliber vessel nondominant vessel with no evidence of high-grade stenosis The left anterior descending artery: Large-caliber vessel appears to be normal with no evidence of high-grade stenosis beside mild disease involving the proximal to midportion and the diagonal HEMODYNAMICS: The LVEDP was 12 mmHg with no significant gradient across aortic valve CONCLUSION: 1. Mild CAD 2. Normal left-sided filling pressure POSTPROCEDURE MANAGEMENT: Medical treatment
[2024-09-29] MEDS ORDERED: SODIUM CHLORIDE 0.9% 1,000 ML IV SCH (08:30)
[2024-09-29 16:50] VITALS: BP 117/59; PULSE 70
== END 2024-09-29 12:28 | disposition home or self-care (01) ==
LOC: CATHCVL 06:11
PROVIDERS: ATTEND Internal Medicine Interventional Cardiology
DX: I25.10 Atherosclerotic heart disease of native coronary artery without angina pectoris (principal); I10 Essential (primary) hypertension; E78.5 Hyperlipidemia, unspecified; G47.33 Obstructive sleep apnea (adult) (pediatric); G20.A1 Parkinson's disease without dyskinesia, without mention of fluctuations; Z88.5 Allergy status to narcotic agent; Z88.8 Allergy status to other drugs, medicaments and biological substances; Z79.82 Long term (current) use of aspirin; Z79.899 Other long term (current) drug therapy
CPT/HCPCS: 93458; 99152; C1769 ×2; C1894; J2250; J1644 ×3; J2003; J3010; Q9967

== ENCOUNTER → 2024-12-01 | Outpatient (CLI) | payer MEDICARE ==
[2024-12-01 14:44] LABS: African American GFR (CKD) 77 (>60 ml/min/1.73 sqM); Blood Urea Nitrogen 11 mg/dL (7-17); Non-African American GFR(CKD) 66 (>60 ml/min/1.73 sqM)
--- NOTE | 2024-12-01 15:31 | CT ---
CT brain with and without contrast HISTORY: Headache. COMPARISON: CT brain without contrast dated 02/01/2023 TECHNIQUE: Multiple axial images are obtained from the skull base to vertex before and after administ ration of nonionic IV contrast. FINDINGS: The ventricles, basal cisterns and sulci over convexities are within normal limits for patient's age and there is no mass effect or shift of midline structures. No abnormal density is seen throughout the brain parenchyma and there is no acute intra or extra-axia l hemorrhage. Following contrast administration, there is no pathological enhancement of the brain parenchyma. The posterior fossa including the brainstem, fourth ventricle and cerebellopontine angles appear norm al. The intraorbital contents appear normal and symmetric. Visualized paranasal sinuses and mastoid air cells are well aerated. The calvarium is intact. IMPRESSION: 1. No acute bleed or mass effect. 2. No pathological enhancement. 3. No significant interval change. [facility], , 12/01/2024 3:29 PM
== END | disposition home or self-care (01) ==
LOC: RADCTMAIN 13:54
PROVIDERS: ATTEND Internal Medicine Geriatric Medicine
DX: R51.9 Headache, unspecified (principal)
CPT/HCPCS: 82565; 84520; 70470; 36415; Q9967